=== PATIENT | male | born 1995 | race Caucasian/White ===

== ENCOUNTER 2017-10-13 13:40 | Inpatient (IN) ==
--- NOTE | 2017-10-13 14:17 | Emergency Department Note ---
ED Disposition Clinical Impression: Enteritis, Rectal bleeding Hematemesis Qualifiers: Nausea presence: with nausea Qualified Code(s): K92.0 - Hematemesis Diarrhea Qualifiers: Diarrhea type: unspecified type Qualified Code(s): R19.7 - Diarrhea, unspecified Disposition: Still a Patient Condition on Discharge: Fair Referrals: Steve Armstrong MD [Primary Care Provider] - - Critical Care Critical Care Time: No Attestation: On 10/13/17, the high probability of a clinically significant, sudden or life threatening deterioration of the following system(s) required my full and direct attention, intervention and personal management. The time I documented below is in addition to time spent performing reported procedures but includes the following listed in this critical care notation. Medical Decision Making - Alber Inquiry Pt receiving controlled substance: No Vital Signs: 10/13/17 13:51 Temperature 98.1 F Temperature Source Oral Pulse Rate [Right Brachial] 90 Respiratory Rate 18 Blood Pressure [Right Arm] 129/80 Blood Pressure Mean [Right Arm] 96 Blood Pressure Source [Right Arm] Automatic Cuff Blood Pressure Position [Right Arm] Sitting 02 Sat by Pulse Oximetry 99 Oxygen Delivery Method Room Air - Lab Data Lab Results 10/13/17 14:00: WBC 10.7, RBC 4.28 L, Hgb 13.3 L, Hct 39.3 L, MCV 91.6, MCH 31.1 , MCHC 33.9, RDW 12.7, Plt Count 334, MPV 8.0, Neut % (Auto) 78.5, Lymph % (Auto ) 15.4, Ross % (Auto) 3.7, Eos % (Auto) 1.6, Baso % (Auto) 0.7, Neut # (Auto) 8.4 H, Lymph # (Auto) 1.6, Ross # (Auto) 0.4, Eos # (Auto) 0.2, Baso # (Auto) 0.1 10/13/17 14:00: PT 12.4 H, INR 1.15 H, APTT 27.1 10/13/17 14:00: Sodium 142, Potassium 4.2, Chloride 105, Carbon Dioxide 28, Anion Gap 13.2, BUN 18, Creatinine 0.99, Estimated Creat Clear 99, Estimated GFR 96, Est GFR ( Amer) 117, Glucose 96, Calcium 9.4, Total Bilirubin 0.8 , AST 13 L, ALT 18, Alkaline Phosphatase 80, Troponin I < 0.02, Total Protein 7.2, Albumin 4.3, Globulin 2.9, Albumin/Globulin Ratio 1.5 10/13/17 14:30: Stool Occult Blood Positive A 10/13/17 14:30: Urine Color Yellow, Urine Appearance Clear, Urine pH 7.5, Ur Specific [place] 1.010, Urine Protein Negative, Urine Glucose (UA) Negative, Urine Ketones Trace, Urine Blood Negative, Urine Nitrate Negative, Urine Bilirubin Negative, Urine Urobilinogen 0.2, Ur Leukocyte Esterase Negative, Urine RBC None, Urine WBC None, Ur Squamous Epith Cells Occasional, Urine Bacteria Trace Result diagrams: 10/13/17 14:00 10/13/17 14:00 Orders (Tests/Meds): ED MEDICATIONS Generic Name Dose Route Start Last Admin Trade Name Freq PRN Reason Stop Dose Admin Pantoprazole Sodium 80 mg/ 100 mls @ 10 mls/hr 10/13/17 15:38 Sodium Chloride IV 10/16/17 15:37 .Q10H CODIE Discontinued Medications Generic Name Dose Route Start Last Admin Trade Name Freq PRN Reason Stop Dose Admin Pantoprazole Sodium 80 mg/ 100 mls @ 100 mls/hr 10/13/17 14:38 10/13/17 14:56 Sodium Chloride IV 10/13/17 15:37 100 mls/hr ONCE ONE Administration Iopamidol 75 ml 10/13/17 15:14 10/13/17 15:15 [id number]; 100ml Vial IV 10/13/17 15:15 75 ml ONCE ONE Administration Sodium Chloride 1,000 ml 10/13/17 14:33 Sod Chlor 0.9% 1000ml Bag IV 10/13/17 14:34 BOLUS ONE Sodium Chloride 10 ml 10/13/17 15:14 10/13/17 15:15 Rad-Saline Flush 10ml Syringe IV 10/13/17 15:15 10 ml ONCE ONE Administration ORDERS Category Date Time Status Diarrhea Panel, PCR Stat Lab 10/13/17 14:30 Received - CT Data CT Scan: Abdomen, Pelvis Time Received: 16:[address] Reviewed: Yes: I have viewed the radiologist's interpretation Findings Narrative: Nondistended, fluid-filled loops of small and large bowel which may be seen with enterocolitis. - Physician Consults Physician Consulted: Callie Time: 16:22 Reason -: Admission Comment/Response: I have discussed the case with Dr. Ledesma who agrees to admit the patient to the hospital. We discussed the patient's clinical information, including history, exam, laboratory and radiology results and ED course. Per hospital procedure, I will write temporary bridge inpatient orders on the patient. Specific orders requested by the admitting physician: IV hydration, diarrhea panel (already ordered) General Adult HPI - General Chief complaint: GI Bleed Stated complaint: vomiting blood/passing blood Time Seen by Provider: 10/13/17 14:16 Mode of Arrival: Wheelchair Limitations: No Limitations Description of Symptoms (Recalled from ER Triage Doc. by RN): pt states beginning at 1030 this morning with vomiting, and bloody stools. stated he experienced at least 5 episodes over the course of 2 hours; accompanied with some orthostatic hypotension. vomiting included black/brown emesis and stool was "nothing but blood" - History of Present Illness HPI narrative: Began with diarrhea this morning followed by passing nothing but pure bright red blood per rectum then vomiting followed by vomiting of both dark and bright red blood. Had some abdominal pain which has now resolved unless he moves around. No prior history of gastrointestinal bleed. No alcohol consumption. Takes occasional Excedrin, no heavy NSAID use. - Related Data Allergies Allergy/AdvReac Type Severity Reaction Status Date / Time No Known Allergies Allergy Unverified 05/19/17 15:02 [facility] History I have reviewed the patient's past medical history: Yes - Social History Educational Level: Completed High School Smoking Status: Never smoker Alcohol Intake: never - Psychiatric History Expresses thoughts of harming self/others: None Suicide Plan Description: No Plan ROS Obtained: Yes All systems reviewed & no additional complaints - Constitutional Constitutional: Denies fever(s) - Gastrointestinal Gastrointestingal: Reports: abdominal pain, diarrhea, vomiting blood, bright red blood in stools, vomiting Physical Exam - General General appearance: alert, in no apparent distress - Head Head exam: atraumatic, normocephalic, normal inspection - Eye Eye exam: Present: normal appearance, PERRL, EOMI - ENT ENT exam: Present: normal exam, normal oropharynx, mucous membranes moist, TM's normal bilaterally, normal external ear exam - Neck Neck exam: Present: normal inspection, full ROM, trachea midline. Absent: meningismus, lymphadenopathy - Chest Chest inspection: Present: normal inspection, symmetric chest wall rise. Absent : tenderness - Respiratory Respiratory exam: Present: normal lung sounds bilaterally. Absent: respiratory distress - Cardiovascular Cardiovascular exam: Present: regular rate, normal rhythm. Absent: JVD - Abdominal Exam Abdominal exam: Present: soft, normal bowel sounds. Absent: distention, tenderness, guarding - Extremities Exam Extremities exam: Present: normal inspection, full ROM, normal capillary refill. Absent: calf tenderness - Back Exam Back exam: Present: normal inspection. Absent: tenderness - Neurological Exam Neurological exam: Present: alert, oriented X3 - Psychiatric Psychiatric exam: Present: normal affect, normal mood - Skin Skin exam: Present: warm, dry, intact, normal color - Lymphatic Lymphatic Findings: no adenopathy
[2017-10-13 14:34] LABS: Basophils # 0.1 K/mm3 (0-0.2); Basophils % 0.7 % (0.1-2.0); Eosinophils # 0.2 K/mm3 (0.0-0.4); Eosinophils % 1.6 % (0.1-12.0); Hematocrit 39.3 % (42.0-52.0); Hemoglobin 13.3 g/dL (14.1-18.0); Lymphocytes # 1.6 K/mm3 (0.7-4.5); Lymphocytes % 15.4 K/mm3 (10-50); Mean Corpuscular HGB Conc 33.9 g/dL (31.8-35.4); Mean Corpuscular Hemoglobin 31.1 pg (27.0-31.2); Mean Corpuscular Volume 91.6 fl (80-94); Monocytes # 0.4 K/mm3 (0.1-1.0); Monocytes % 3.7 % (1.7-9.3); Neutrophils # 8.4 K/mm3 (1.8-7.8); Neutrophils % 78.5 % (37.0-80.0); Platelet Count 334 K/mm3 (142-424); Red Blood Count 4.28 M/mm3 (4.60-6.20); Red Cell Distribution Width 12.7 % (11.5-17.5); White Blood Count 10.7 K/mm3 (4.5-13.0)
[2017-10-13 14:39] LABS: Activated Partial Thrombo Time 27.1 seconds (23.6-34.0); INR 1.15 (0.9-1.1); Prothrombin Time 12.4 seconds (9.4-11.8)
[2017-10-13 14:40] LABS: Microscopic, Urine URINE MICROSCOPIC (MICROSCOPIC)
[2017-10-13 14:43] LABS: Appearance,Urine CLEAR (Clear); Bilirubin,Urine Negative (Negative); Blood, Urine Negative (Negative); Color,Urine YELLOW (Yellow); Glucose,Urine (UA) Negative (Negative); Ketones,Urine TRACE (Negative); Leukocyte Esterase,Urine Negative (Negative); PH,Urine 7.5 (5.0-8.5); Protein,Urine Negative (Negative); Urobilinogen,Urine 0.2 EU/dl (0.2)
[2017-10-13 14:51] LABS: Bacteria,Urine Trace /lpf; Squamous Epithelial Cell,Urine Occasional #/hpf (0-5)
[2017-10-13 14:59] LABS: Alanine Aminotransferase 18 U/L (12-78); Albumin Level 4.3 gm/dL (3.4-5.0); Albumin/Globulin Ratio 1.5 (1.1-1.8); Alkaline Phosphatase 80 U/L (46-116); Anion Gap 13.2 mEq/L (5-15); Aspartate Amino Transferase 13 U/L (15-37); Bilirubin,Total 0.8 mg/dL (0.2-1.0); Blood Urea Nitrogen 18 mg/dL (7-18); Calcium 9.4 mg/dL (8.5-10.1); Carbon Dioxide 28 mmol/L (21.0-32.0); Chloride 105 mmol/L (98-107); Globulin 2.9 gm/dl (1.3-3.2); Glucose 96 mg/dL (74-106); Potassium 4.2 mmoL/L (3.5-5.1); Sodium 142 mmol/L (136-145); Total Protein,Serum 7.2 gm/dL (6.4-8.2)
--- NOTE | 2017-10-14 06:37 | History & Physical Report ---
*Admission Date: 10/14/17 *Chief complaint: Hematemesis with bloody stools *History of present illness: 22-year-old male presented to the emergency department yesterday afternoon after illness had developed early in the morning with multiple bouts of vomiting with some hematemesis as well as at least 2 bowel movements that were "pure blood". Patient reports feeling well when he awoke yesterday morning and preparing to go to work. Around 8 AM he felt nauseous and that was his first episodes of vomiting. He actually continue to try to work but noticed lightheadedness and weakness. He ultimately returned home to rest. He called my office for an appointment and upon presentation once he presented all his symptoms he was told to come to the emergency department. In the emergency department patient was evaluated. Hemoglobin was 13. By the time he had come to the emergency department he had had 4-5 more episodes of hematemesis with description of both dark and bright red blood. Patient also had additional bowel movements described as pure blood. Patient was admitted around 6 PM and has not had a bowel movement since. He does report an episode of vomiting this morning. He has had a single sick contact at work. Fellow coworker had vomiting and diarrhea Thursday of this week. He denies fevers or chills. He denies shortness of breath. Other medical history is significant for migraine headaches. Patient also reports he has been taking Jesica because of seasonal allergies. [facility] History I have reviewed the patient's past medical history: Yes Medical History: Denies:: Cancer, Diabetes Mellitus Type 1, Diabetes Mellitus Type 2, MRSA Comment: Migraine headaches Amputation: No Fractures: No - *Social History Educational Level: Completed High School Smoking Status: Never smoker Alcohol Intake: never Occupational Status: employed Housing: house Household Members: family - Psychiatric History Expresses thoughts of harming self/others: None Suicide Plan Description: No Plan *Family Hx:: Diabetes, Hyperlipidemia, Hypertension Review of Systems - Review of Systems Review of systems:: pertinent systems reviewed and negative unless documented below Meds Home Medications Medication Instructions Recorded Confirmed Type No Known Home Medications 10/13/17 10/13/17 History Allergies Allergy/AdvReac Type Severity Reaction Status Date / Time No Known Allergies Allergy Unverified 05/19/17 15:02 Exam Vital signs and Labs for Last 24 Hours: Temp Pulse Resp BP Pulse Ox 98.6 F 68 12 119/61 99 10/14/17 04:00 10/14/17 04:00 10/14/17 04:00 10/14/17 04:00 10/14/17 04:00 Laboratory Results - last 24 hr 10/13/17 14:00: WBC 10.7, RBC 4.28 L, Hgb 13.3 L, Hct 39.3 L, MCV 91.6, MCH 31.1 , MCHC 33.9, RDW 12.7, Plt Count 334, MPV 8.0, Neut % (Auto) 78.5, Lymph % (Auto ) 15.4, Green % (Auto) 3.7, Eos % (Auto) 1.6, Baso % (Auto) 0.7, Neut # (Auto) 8.4 H, Lymph # (Auto) 1.6, Green # (Auto) 0.4, Eos # (Auto) 0.2, Baso # (Auto) 0.1 10/13/17 14:00: PT 12.4 H, INR 1.15 H, APTT 27.1 10/13/17 14:00: Sodium 142, Potassium 4.2, Chloride 105, Carbon Dioxide 28, Anion Gap 13.2, BUN 18, Creatinine 0.99, Estimated Creat Clear 99, Estimated GFR 96, Est GFR ( Amer) 117, Glucose 96, Calcium 9.4, Total Bilirubin 0.8 , AST 13 L, ALT 18, Alkaline Phosphatase 80, Troponin I < 0.02, Total Protein 7.2, Albumin 4.3, Globulin 2.9, Albumin/Globulin Ratio 1.5 10/13/17 14:30: Stool Occult Blood Positive A 10/13/17 14:30: Stl Aeromonas (PCR) Not detected, Stl C. cayetanensis PCR Not detected, Stool Rotavirus (PCR) Not detected, Stl Adenov F 40/41 PCR Not detected, Stool Astrovirus (PCR) Not detected, Stool Campylobacter PCR Not detected, Stl C.difficile Tox PCR Detected A, Stool Cryptosporidium PCR Not detected, Stl E.coli Shiga Tox PCR Not detected, Stool E coli O157 PCR Not detected, Stl Enterotoxigenic E PCR Not detected, Stool EPEC (PCR) Not detected , Stool EAEC (PCR) Not detected, Stl E. histolytica PCR Not detected, Stool Giardia Lamblia PCR Not detected, Stool Salmonella PCR Not detected, Stool Sapovirus (PCR) Not detected, Stl P. shigelloides PCR Not detected, Stl Shigella /EIEC PCR Not detected, St Y.enterocolitica PCR Not detected, Stool Vibrio (PCR ) Not detected, Stl Vibrio cholerae PCR Not detected, Stl Norovirus GI/GII PCR Not detected 10/13/17 14:30: Urine Color Yellow, Urine Appearance Clear, Urine pH 7.5, Ur Specific [place] 1.010, Urine Protein Negative, Urine Glucose (UA) Negative, Urine Ketones Trace, Urine Blood Negative, Urine Nitrate Negative, Urine Bilirubin Negative, Urine Urobilinogen 0.2, Ur Leukocyte Esterase Negative, Urine RBC None, Urine WBC None, Ur Squamous Epith Cells Occasional, Urine Bacteria Trace I & O for Last 24 hours: Intake & Output 10/11/17 10/12/17 10/13/17 10/14/17 11:59 11:59 11:59 11:59 Intake Total 1409 / 1409 Balance 1409 / 1409 Weight 125 lb 8 oz Narrative: Patient does not appear ill. Oropharynx is moist. Neck is without lymphadenopathy. Lungs are clear to auscultation. Heart has a regular rate and rhythm. Abdomen is thin, soft, nontender, nondistended with active bowel sounds. Patient has active range of motion all extremities. Patient can ambulate without difficulty H&P: Result - Labs Labs: Short CBC 10/13/17 Range/Units 14:00 WBC 10.7 (4.5-13.0) K/mm3 Hgb 13.3 L (14.1-18.0) g/dL Hct 39.3 L (42.0-52.0) % Plt Count 334 (142-424) K/mm3 BMP 10/13/17 14:00 Sodium 142 Potassium 4.2 Chloride 105 Carbon Dioxide 28 BUN 18 Creatinine 0.99 Glucose 96 Calcium 9.4 Cardiac Enzymes 10/13/17 Range/Units 14:00 Troponin I < 0.02 (0.00-0.06) ng/ml Liver Function 10/13/17 Range/Units 14:00 Total Bilirubin 0.8 (0.2-1.0) mg/dL AST 13 L (15-37) U/L ALT 18 (12-78) U/L Alkaline Phosphatase 80 (46-116) U/L Albumin 4.3 (3.4-5.0) gm/dL Urine 10/13/17 Range/Units 14:30 Urine Color Yellow (Yellow) Urine Appearance Clear (Clear) Urine pH 7.5 (5.0-8.5) Ur Specific [place] 1.010 (1.005-1.030) Urine Protein Negative (Negative) Urine Glucose (UA) Negative (Negative) Assessment and Plan (1) Clostridium difficile enterocolitis Current visit: Yes Status: Acute Category: Medical Code(s): A04.72 - Enterocolitis due to Clostridium difficile, not specified as recurrent (2) Hematemesis Current visit: Yes Status: Acute Qualifiers: Nausea presence: with nausea Qualified Code(s): K92.0 - Hematemesis Category: Medical Code(s): K92.0 - Hematemesis - Assessment and plan all Dx Assessment and Plan for all problems:: 1. IV Flagyl to treat C. difficile 2. Await H&H this morning. If he has had a significant drop in his hemoglobin the surgical service will be consulted for EGD 3. Continue Protonix drip.
--- NOTE | 2017-10-14 07:26 | Pharmacy Consult Notes ---
[facility] Pharmacy VTE Monitoring - Patient Demographics Admission date: 10/13/17 Report Date: 10/14/17 Time: 07:26 Allergies/Adverse Reactions: Patient Allergies No Known Allergies Allergy (Unverified 05/19/17 15:02) Height: 1.85 m Weight: 56.926 kg Patient Problems: Current Active Problems Enteritis (Acute) Rectal bleeding (Acute) Hematemesis (Acute) Diarrhea (Acute) Clostridium difficile enterocolitis (Acute) - VTE Risk Labs: VTE Related Lab Results Hgb 13.3 g/dL (14.1-18.0) L 10/13/17 14:00 Hct 39.3 % (42.0-52.0) L 10/13/17 14:00 Plt Count 334 K/mm3 (142-424) 10/13/17 14:00 PT 12.4 seconds (9.4-11.8) H 10/13/17 14:00 INR 1.15 (0.9-1.1) H 10/13/17 14:00 APTT 27.1 seconds (23.6-34.0) 10/13/17 14:00 BUN 18 mg/dL (7-18) 10/13/17 14:00 Creatinine 0.99 mg/dL (0.70-1.30) 10/13/17 14:00 Estimated Creat Clear 99 mL/min (0-300) 10/13/17 14:00 VTE Score: 0 - Prophylaxis VTE Prophylaxis Ordered?: Yes Types of VTE Prophylaxis: TEDS Knee High Location of Applied Device: Bilateral Lower Extremeties - VTE Diagnosis Confirmed Treatment or plan recommended: Continue Current Treatment
[2017-10-14 07:27] LABS: Basophils % 0.6 % (0.1-2.0); Eosinophils # 0.1 K/mm3 (0.0-0.4); Eosinophils % 1.8 % (0.1-12.0); Hematocrit 28.5 % (42.0-52.0); Lymphocytes # 1.1 K/mm3 (0.7-4.5); Lymphocytes % 15.5 K/mm3 (10-50); Mean Corpuscular HGB Conc 36.2 g/dL (31.8-35.4); Mean Corpuscular Hemoglobin 33.1 pg (27.0-31.2); Mean Corpuscular Volume 91.4 fl (80-94); Mean Platelet Volume 8.4 fl (7.4-10.4); Monocytes # 0.3 K/mm3 (0.1-1.0); Monocytes % 4.5 % (1.7-9.3); Neutrophils # 5.7 K/mm3 (1.8-7.8); Neutrophils % 77.6 % (37.0-80.0); Platelet Count 258 K/mm3 (142-424); Red Blood Count 3.11 M/mm3 (4.60-6.20); Red Cell Distribution Width 12.6 % (11.5-17.5); White Blood Count 7.4 K/mm3 (4.5-13.0)
[2017-10-14 07:34] LABS: Anion Gap 9.9 mEq/L (5-15); Potassium 3.9 mmoL/L (3.5-5.1)
[2017-10-14 07:52] LABS: Hemoglobin 10.2 g/dL (14.1-18.0)
--- NOTE | 2017-10-14 08:52 | Progress Note ---
[facility] Anesthesia Checklist - Patient Identification Patient Identification: Arm Band, Family, Verbal (Name & ) - Structural Data Admitted From: Inpatient Planned Operative Procedure/s: egd Consent for Planned Operative Procedure(s) Verified: Yes Verified Documents: Surgical Consent, History and Physical - NPO Status Verified Time NPO: 09:30 - Chart Verification Results Verified: CBC, BMP - Additional verifications Patient : No Anesthesia Reactions: No Hx Blood Transfusions: No Blood Transfusion Reaction: No Cephalosporin Allergy: No Previous Colonoscopy: No - Cardiovascular Assessment Heart Sounds: S1 & S2 Pulse Strength: Baseline Pulse Rhythm: Regular - Airway Assessment C-Spine Mobility Assessed: Yes TMJ Mobility Assessed: Yes Dentition: Good Dentition - Neurological Assessment Level of Consciousness: Awake, Alert, Appropriate Hx Seizures: No Numbness or tingling in extremities: No - Anesthesia Plan Anesthesia Risk discussed: Yes Anesthesia Plan: Verified ASA Class: II Anesthesia Type: MAC [facility] Anesthesia HX I have reviewed the patient's past medical history: Yes Medical History: Reports:: Migraine Denies:: Cancer, Diabetes Mellitus Type 1, Diabetes Mellitus Type 2, MRSA Laterality Cases: Bilateral: Myringotomy (Ear Tubes) Amputation: No Fractures: No *Family Hx:: Diabetes, Hyperlipidemia, Hypertension
--- NOTE | 2017-10-14 09:01 | Consult Report ---
*Admission Date: 10/13/17 *Chief complaint: Possible upper gastrointestinal hemorrhage *History of present illness: This is a 22-year-old gentleman seen in consultation from Dr. Ibrahim for esophagogastroduodenoscopy for possible upper gastrointestinal hemorrhage. Please see below for his admission HPI: 22-year-old male presented to the emergency department yesterday afternoon after illness had developed early in the morning with multiple bouts of vomiting with some hematemesis as well as at least 2 bowel movements that were "pure blood". Patient reports feeling well when he awoke yesterday morning and preparing to go to work. Around 8 AM he felt nauseous and that was his first episodes of vomiting. He actually continue to try to work but noticed lightheadedness and weakness. He ultimately returned home to rest. He called my office for an appointment and upon presentation once he presented all his symptoms he was told to come to the emergency department. In the emergency department patient was evaluated. Hemoglobin was 13. By the time he had come to the emergency department he had had 4-5 more episodes of hematemesis with description of both dark and bright red blood. Patient also had additional bowel movements described as pure blood. Patient was admitted around 6 PM and has not had a bowel movement since. He does report an episode of vomiting this morning. He has had a single sick contact at work. Fellow coworker had vomiting and diarrhea Thursday of this week. He denies fevers or chills. He denies shortness of breath. Other medical history is significant for migraine headaches. Patient also reports he has been taking Jesica because of seasonal allergies. Review of Systems - Constitutional Denies chills - Eyes Denies change in vision - ENT Denies bleeding gums - *Respiratory Denies cough - *Gastrointestinal Reports vomiting blood - Hematologic/Lymphatic Denies easy bleeding [facility] History Medical History: Reports:: Migraine Denies:: Cancer, Diabetes Mellitus Type 1, Diabetes Mellitus Type 2, MRSA, Seizures Other Medical History: Denies: Blood Transfusion Reaction Laterality Cases: Bilateral: Myringotomy (Ear Tubes) Amputation: No Fractures: No - *Social History Educational Level: Completed High School Smoking Status: Never smoker Alcohol Intake: never Occupational Status: employed Housing: house Household Members: family - Psychiatric History Expresses thoughts of harming self/others: None Suicide Plan Description: No Plan *Family Hx:: Diabetes, Hyperlipidemia, Hypertension Meds Home Medications Medication Instructions Recorded Confirmed Type No Known Home Medications 10/13/17 10/13/17 History Allergies Allergy/AdvReac Type Severity Reaction Status Date / Time No Known Allergies Allergy Unverified 05/19/17 15:02 Exam Vital signs and Labs for Last 24 Hours: Temp Pulse Resp BP Pulse Ox 98.7 F 66 18 103/45 98 10/14/17 07:38 10/14/17 07:38 10/14/17 07:38 10/14/17 07:38 10/14/17 07:38 Laboratory Results - last 24 hr 10/13/17 14:00: WBC 10.7, RBC 4.28 L, Hgb 13.3 L, Hct 39.3 L, MCV 91.6, MCH 31.1 , MCHC 33.9, RDW 12.7, Plt Count 334, MPV 8.0, Neut % (Auto) 78.5, Lymph % (Auto ) 15.4, [place] % (Auto) 3.7, Eos % (Auto) 1.6, Baso % (Auto) 0.7, Neut # (Auto) 8.4 H, Lymph # (Auto) 1.6, [place] # (Auto) 0.4, Eos # (Auto) 0.2, Baso # (Auto) 0.1 10/13/17 14:00: PT 12.4 H, INR 1.15 H, APTT 27.1 10/13/17 14:00: Sodium 142, Potassium 4.2, Chloride 105, Carbon Dioxide 28, Anion Gap 13.2, BUN 18, Creatinine 0.99, Estimated Creat Clear 99, Estimated GFR 96, Est GFR ( Amer) 117, Glucose 96, Calcium 9.4, Total Bilirubin 0.8 , AST 13 L, ALT 18, Alkaline Phosphatase 80, Troponin I < 0.02, Total Protein 7.2, Albumin 4.3, Globulin 2.9, Albumin/Globulin Ratio 1.5 10/13/17 14:30: Stool Occult Blood Positive A 10/13/17 14:30: Stl Aeromonas (PCR) Not detected, Stl C. cayetanensis PCR Not detected, Stool Rotavirus (PCR) Not detected, Stl Adenov F 40/41 PCR Not detected, Stool Astrovirus (PCR) Not detected, Stool Campylobacter PCR Not detected, Stl C.difficile Tox PCR Detected A, Stool Cryptosporidium PCR Not detected, Stl E.coli Shiga Tox PCR Not detected, Stool E coli O157 PCR Not detected, Stl Enterotoxigenic E PCR Not detected, Stool EPEC (PCR) Not detected , Stool EAEC (PCR) Not detected, Stl E. histolytica PCR Not detected, Stool Giardia Lamblia PCR Not detected, Stool Salmonella PCR Not detected, Stool Sapovirus (PCR) Not detected, Stl P. shigelloides PCR Not detected, Stl Shigella /EIEC PCR Not detected, St Y.enterocolitica PCR Not detected, Stool Vibrio (PCR ) Not detected, Stl Vibrio cholerae PCR Not detected, Stl Norovirus GI/GII PCR Not detected 10/13/17 14:30: Urine Color Yellow, Urine Appearance Clear, Urine pH 7.5, Ur Specific [place] 1.010, Urine Protein Negative, Urine Glucose (UA) Negative, Urine Ketones Trace, Urine Blood Negative, Urine Nitrate Negative, Urine Bilirubin Negative, Urine Urobilinogen 0.2, Ur Leukocyte Esterase Negative, Urine RBC None, Urine WBC None, Ur Squamous Epith Cells Occasional, Urine Bacteria Trace 10/14/17 06:58: WBC 7.4 D, RBC 3.11 L D, Hgb 10.2 L D, Hct 28.5 L, MCV 91.4, MCH 33.1 H, MCHC 36.2 H, RDW 12.6, Plt Count 258, MPV 8.4, Neut % (Auto) 77.6, Lymph % (Auto) 15.5, [place] % (Auto) 4.5, Eos % (Auto) 1.8, Baso % (Auto) 0.6, Neut # (Auto) 5.7, Lymph # (Auto) 1.1, [place] # (Auto) 0.3, Eos # (Auto) 0.1, Baso # (Auto) 0.0 10/14/17 06:58: Sodium 141, Potassium 3.9, Chloride 109 H, Carbon Dioxide 26, Anion Gap 9.9, BUN 30 H D, Creatinine 0.89, Estimated Creat Clear 107, Estimated GFR 109, Est GFR ( Amer) 132, Glucose 95 I & O for Last 24 hours: Intake & Output 05/13/18 05/14/18 05/15/18 05/16/18 11:59 11:59 11:59 11:59 Intake Total 1409 / 1409 Balance 1409 / 1409 Weight 125 lb 8 oz - Constitutional no acute distress - *Routine Respiratory Exam Absent: respiratory distress - *Routine Cardiovascular Exam Present: RRR - *Routine Abdominal Exam Present: soft Results - Labs 10/14/17 06:58 10/14/17 06:58 Laboratory Results - last 24 hr 10/13/17 14:00: WBC 10.7, RBC 4.28 L, Hgb 13.3 L, Hct 39.3 L, MCV 91.6, MCH 31.1 , MCHC 33.9, RDW 12.7, Plt Count 334, MPV 8.0, Neut % (Auto) 78.5, Lymph % (Auto ) 15.4, [place] % (Auto) 3.7, Eos % (Auto) 1.6, Baso % (Auto) 0.7, Neut # (Auto) 8.4 H, Lymph # (Auto) 1.6, [place] # (Auto) 0.4, Eos # (Auto) 0.2, Baso # (Auto) 0.1 10/13/17 14:00: PT 12.4 H, INR 1.15 H, APTT 27.1 10/13/17 14:00: Sodium 142, Potassium 4.2, Chloride 105, Carbon Dioxide 28, Anion Gap 13.2, BUN 18, Creatinine 0.99, Estimated Creat Clear 99, Estimated GFR 96, Est GFR ( Amer) 117, Glucose 96, Calcium 9.4, Total Bilirubin 0.8 , AST 13 L, ALT 18, Alkaline Phosphatase 80, Troponin I < 0.02, Total Protein 7.2, Albumin 4.3, Globulin 2.9, Albumin/Globulin Ratio 1.5 10/13/17 14:30: Stool Occult Blood Positive A 10/13/17 14:30: Stl Aeromonas (PCR) Not detected, Stl C. cayetanensis PCR Not detected, Stool Rotavirus (PCR) Not detected, Stl Adenov F 40/41 PCR Not detected, Stool Astrovirus (PCR) Not detected, Stool Campylobacter PCR Not detected, Stl C.difficile Tox PCR Detected A, Stool Cryptosporidium PCR Not detected, Stl E.coli Shiga Tox PCR Not detected, Stool E coli O157 PCR Not detected, Stl Enterotoxigenic E PCR Not detected, Stool EPEC (PCR) Not detected , Stool EAEC (PCR) Not detected, Stl E. histolytica PCR Not detected, Stool Giardia Lamblia PCR Not detected, Stool Salmonella PCR Not detected, Stool Sapovirus (PCR) Not detected, Stl P. shigelloides PCR Not detected, Stl Shigella /EIEC PCR Not detected, St Y.enterocolitica PCR Not detected, Stool Vibrio (PCR ) Not detected, Stl Vibrio cholerae PCR Not detected, Stl Norovirus GI/GII PCR Not detected 10/13/17 14:30: Urine Color Yellow, Urine Appearance Clear, Urine pH 7.5, Ur Specific [place] 1.010, Urine Protein Negative, Urine Glucose (UA) Negative, Urine Ketones Trace, Urine Blood Negative, Urine Nitrate Negative, Urine Bilirubin Negative, Urine Urobilinogen 0.2, Ur Leukocyte Esterase Negative, Urine RBC None, Urine WBC None, Ur Squamous Epith Cells Occasional, Urine Bacteria Trace 10/14/17 06:58: WBC 7.4 D, RBC 3.11 L D, Hgb 10.2 L D, Hct 28.5 L, MCV 91.4, MCH 33.1 H, MCHC 36.2 H, RDW 12.6, Plt Count 258, MPV 8.4, Neut % (Auto) 77.6, Lymph % (Auto) 15.5, [place] % (Auto) 4.5, Eos % (Auto) 1.8, Baso % (Auto) 0.6, Neut # (Auto) 5.7, Lymph # (Auto) 1.1, [place] # (Auto) 0.3, Eos # (Auto) 0.1, Baso # (Auto) 0.0 10/14/17 06:58: Sodium 141, Potassium 3.9, Chloride 109 H, Carbon Dioxide 26, Anion Gap 9.9, BUN 30 H D, Creatinine 0.89, Estimated Creat Clear 107, Estimated GFR 109, Est GFR ( Amer) 132, Glucose 95 Assessment and Plan (1) Clostridium difficile enterocolitis Current visit: Yes Status: Acute Category: Medical Code(s): A04.72 - Enterocolitis due to Clostridium difficile, not specified as recurrent (2) Hematemesis Current visit: Yes Status: Acute Qualifiers: Nausea presence: with nausea Qualified Code(s): K92.0 - Hematemesis Category: Medical Code(s): K92.0 - Hematemesis Continue PPI Esophagogastroduodenoscopy-I have discussed the risks and benefits and he agrees to proceed
--- NOTE | 2017-10-14 12:29 | Procedure Note ---
- Procedure: Date: 10/14/17 Procedure Performed:: Esophagogastroduodenoscopy with biopsy and epinephrine injection Indications:: Upper gastrointestinal hemorrhage Performing Provider:: Ramón Vail MD Referring Provider:: Dr. Ibrahim Sedation:: IV sedation with 9 mg of Versed and 150 mcg of fentanyl Procedure:: After informed consent was obtained, the patient was taken to the endoscopy suite. IV sedation ensued after he was transferred to the left lateral decubitus position. The gastroscope was advanced. The neck was entered. Minimal inflammation was noted. The pylorus is into. The duodenal ulcer with "fresh clot" at the base was noted. No ongoing/active bleeding was seen. 16.5 ml epinephrine was injected in multiple quadrants around the ulcer. Appropriate "blush" was noted. Again, no ongoing/active bleeding was noted. As the gastroscope was removed, a biopsy of the antrum was obtained. Findings:: Duodenal ulcer with "fresh clot" at the base, but no active bleeding Specimens:: Antral biopsy Recommendations:: Continue PPI Carafate Serial H/H Complications:: No immediate Estimated blood obtained (mL): 1
[2017-10-14 13:39] LABS: Hematocrit 28.9 % (42.0-52.0); Hemoglobin 9.9 g/dL (14.1-18.0)
[2017-10-14 21:34] LABS: Hematocrit 24.5 % (42.0-52.0)
[2017-10-14 21:48] LABS: Hemoglobin 8.6 g/dL (14.1-18.0)
[2017-10-15 05:40] LABS: Hematocrit 25.7 % (42.0-52.0); Hemoglobin 9.4 g/dL (14.1-18.0)
--- NOTE | 2017-10-15 06:54 | Progress Note ---
Subjective Patient reports: other (resting. some "dark stool" yesterday.) Exam Vital signs and Labs for Last 24 Hours: Temp Pulse Resp BP Pulse Ox 98.3 F 101 H 16 108/57 98 10/15/17 04:00 10/15/17 04:00 10/15/17 04:00 10/15/17 04:00 10/15/17 04:00 Laboratory Results - last 24 hr 10/14/17 06:58: WBC 7.4 D, RBC 3.11 L D, Hgb 10.2 L D, Hct 28.5 L, MCV 91.4, MCH 33.1 H, MCHC 36.2 H, RDW 12.6, Plt Count 258, MPV 8.4, Neut % (Auto) 77.6, Lymph % (Auto) 15.5, [place] % (Auto) 4.5, Eos % (Auto) 1.8, Baso % (Auto) 0.6, Neut # (Auto) 5.7, Lymph # (Auto) 1.1, [place] # (Auto) 0.3, Eos # (Auto) 0.1, Baso # (Auto) 0.0 10/14/17 06:58: Sodium 141, Potassium 3.9, Chloride 109 H, Carbon Dioxide 26, Anion Gap 9.9, BUN 30 H D, Creatinine 0.89, Estimated Creat Clear 107, Estimated GFR 109, Est GFR ( Amer) 132, Glucose 95 10/14/17 13:15: Hgb 9.9 L, Hct 28.9 L 10/14/17 21:05: Hgb 8.6 L D, Hct 24.5 L 10/15/17 05:20: Hgb 9.4 L, Hct 25.7 L I & O for Last 24 hours: Intake & Output 10/12/17 10/13/17 10/14/17 10/15/17 11:59 11:59 11:59 11:59 Intake Total 1609 / 1609 4867 / 4867 Balance 1609 / 1609 4867 / 4867 Weight 125 lb 8 oz 125 lb 8.005 oz - Constitutional no acute distress - *Routine Respiratory Exam Absent: respiratory distress - *Routine Abdominal Exam Present: soft Progress Note: A&P (1) Clostridium difficile enterocolitis Status: Acute Current Visit: Yes (2) Hematemesis Status: Acute Current Visit: Yes (3) Duodenal ulcer Status: Acute Assessment and plan: Continue PPI/Carafate Slowly advance to soft diet HH later today and in AM FU pending path from antral biopsy Current Visit: Yes
--- NOTE | 2017-10-15 07:06 | Progress Note ---
Internal Medicine - PN: Subj *Date: 10/15/17 *Time: 07:04 Interval history: Patient developed a migraine headache last night that required subcutaneous Imitrex which did relieve the headache. Patient believes his headache may have been triggered by lack of food. EGD yesterday by Dr. Coelho showed a duodenal ulcer. Biopsies have been taken. The ulcer base was injected with epinephrine. Patient is passing black stools. He admits he feels weak but denies any shortness of breath or lightheadedness. Exam Vital signs and Labs for Last 24 Hours: Temp Pulse Resp BP Pulse Ox 98.3 F 101 H 16 108/57 98 10/15/17 04:00 10/15/17 04:00 10/15/17 04:00 10/15/17 04:00 10/15/17 04:00 Laboratory Results - last 24 hr 10/14/17 06:58: WBC 7.4 D, RBC 3.11 L D, Hgb 10.2 L D, Hct 28.5 L, MCV 91.4, MCH 33.1 H, MCHC 36.2 H, RDW 12.6, Plt Count 258, MPV 8.4, Neut % (Auto) 77.6, Lymph % (Auto) 15.5, [place] % (Auto) 4.5, Eos % (Auto) 1.8, Baso % (Auto) 0.6, Neut # (Auto) 5.7, Lymph # (Auto) 1.1, [place] # (Auto) 0.3, Eos # (Auto) 0.1, Baso # (Auto) 0.0 10/14/17 06:58: Sodium 141, Potassium 3.9, Chloride 109 H, Carbon Dioxide 26, Anion Gap 9.9, BUN 30 H D, Creatinine 0.89, Estimated Creat Clear 107, Estimated GFR 109, Est GFR ( Amer) 132, Glucose 95 10/14/17 13:15: Hgb 9.9 L, Hct 28.9 L 10/14/17 21:05: Hgb 8.6 L D, Hct 24.5 L 10/15/17 05:20: Hgb 9.4 L, Hct 25.7 L I & O for Last 24 hours: Intake & Output 10/12/17 10/13/17 10/14/17 10/15/17 11:59 11:59 11:59 11:59 Intake Total 1609 / 1609 4867 / 4867 Balance 1609 / 1609 486 / 4867 Weight 125 lb 8 oz 125 lb 8.005 oz Narrative: He looks well. Lungs are clear to auscultation. Heart has a regular rate and rhythm. Abdomen is thin, soft, nontender Assessment and Plan (1) Clostridium difficile enterocolitis Current visit: Yes Status: Acute Category: Medical Code(s): A04.72 - Enterocolitis due to Clostridium difficile, not specified as recurrent (2) Hematemesis Current visit: Yes Status: Acute Qualifiers: Nausea presence: with nausea Qualified Code(s): K92.0 - Hematemesis Category: Medical Code(s): K92.0 - Hematemesis (3) Duodenal ulcer Current visit: Yes Status: Acute Category: Medical Code(s): K26.9 - Duodenal ulcer, unspecified as acute or chronic, without hemorrhage or perforation - Assessment and plan all Dx Assessment and Plan for all problems:: 1. Continue Protonix twice daily and Carafate, await pathology of biopsy 2. Continue IV Flagyl for C. difficile 3. Subcutaneous Imitrex has been ordered as needed for migraine headache 4. Trazodone has been ordered for sleep
[2017-10-15 17:20] LABS: Hematocrit 25.6 % (42.0-52.0); Hemoglobin 8.9 g/dL (14.1-18.0)
[2017-10-16 06:52] LABS: Hematocrit 25.1 % (42.0-52.0); Hemoglobin 8.8 g/dL (14.1-18.0)
--- NOTE | 2017-10-16 07:09 | Progress Note ---
Subjective Patient reports: no new complaints Narrative: No more black stools. She did have some mild nausea. He attributes this to lack of substantial food. Denies abdominal pain. Exam Vital signs and Labs for Last 24 Hours: Temp Pulse Resp BP Pulse Ox 98.4 F 87 18 108/48 98 10/16/17 04:00 10/16/17 04:00 10/16/17 04:00 10/16/17 04:00 10/16/17 04:00 Laboratory Results - last 24 hr 10/15/17 17:05: Hgb 8.9 L, Hct 25.6 L I & O for Last 24 hours: Intake & Output 10/13/17 10/14/17 10/15/17 10/16/17 11:59 11:59 11:59 11:59 Intake Total 1609 / 1609 5307 / 5307 3767 / 3767 Balance 1609 / 1609 5307 / 5307 3767 / 3767 Weight 125 lb 8 oz 125 lb 8.005 oz - *Routine Abdominal Exam Present: soft. Absent: tenderness Progress Note: A&P (1) Clostridium difficile enterocolitis Status: Acute Current Visit: Yes (2) Hematemesis Status: Acute Current Visit: Yes (3) Duodenal ulcer Status: Acute Assessment and plan: Should be okay for discharge home with medical management of her duodenal ulcer. Current Visit: Yes
--- NOTE | 2017-10-16 07:26 | Discharge Summary ---
General - General Admission date:: 10/13/17 Discharge date: 10/16/17 HPI HPI: 22-year-old male presented to the emergency department yesterday afternoon after illness had developed early in the morning with multiple bouts of vomiting with some hematemesis as well as at least 2 bowel movements that were "pure blood". Patient reports feeling well when he awoke yesterday morning and preparing to go to work. Around 8 AM he felt nauseous and that was his first episodes of vomiting. He actually continue to try to work but noticed lightheadedness and weakness. He ultimately returned home to rest. He called my office for an appointment and upon presentation once he presented all his symptoms he was told to come to the emergency department. In the emergency department patient was evaluated. Hemoglobin was 13. By the time he had come to the emergency department he had had 4-5 more episodes of hematemesis with description of both dark and bright red blood. Patient also had additional bowel movements described as pure blood. Patient was admitted around 6 PM and has not had a bowel movement since. He does report an episode of vomiting this morning. He has had a single sick contact at work. Fellow coworker had vomiting and diarrhea Thursday of this week. He denies fevers or chills. He denies shortness of breath. Other medical history is significant for migraine headaches. Patient also reports he has been taking Jesica because of seasonal allergies. Hospital Course Hospital Course: Patient was admitted for observation and serial H&H's. The morning following admission his hemoglobin had dropped significantly. Dr. Coelho was consulted for EGD. Patient underwent EGD on October 14. EGD revealed a duodenal ulcer that had fresh clot but was not actively bleeding. The ulcer was biopsied and injected with epinephrine. Post procedurally the patient was started on clear liquids which was later advanced to full liquids. Patient did tolerate liquids. He continued to pass some black stools but these decreased in frequency. He was continued on IV Flagyl to treat C. difficile while hospitalized. Patient's hemoglobins were followed every 6 hours and then every 12 hours during hospitalization. Hemoglobin decreased to a low of 8.6 on the evening of the . At discharge hemoglobin was 8.8. Patient continued to have some lightheadedness and lack of energy from his blood loss. On the patient was discharged home. While hospitalized he also had several migraine aches which the patient has a history of. These responded minimally to his Imitrex. He will follow-up in my office on Thursday. Objective Vital signs: Temp Pulse Resp BP Pulse Ox 98.4 F 87 18 108/48 98 10/16/17 04:00 10/16/17 04:00 10/16/17 04:00 10/16/17 04:00 10/16/17 04:00 Results Labs on day of discharge: Labs from last 24 hours 10/16/17 10/15/17 06:15 17:05 Hgb 8.8 L 8.9 L Hct 25.1 L 25.6 L DS: Diagnosis - Discharge Diagnosis (1) Duodenal ulcer Status: Acute (2) Clostridium difficile enterocolitis Status: Acute (3) Hematemesis Status: Acute Discharge Plan - Patient Discharge Instructions ACTIVITY: Continue current activity DIET: continue same diet Patient Instructions: Diarrhea, Antibiotic-associated Colitis -- C difficile, DI for Rectal Bleeding - Follow up Plan Follow up with: Ramón Vail MD [Staff Physician] - 1 week Yogesh Ibrahim MD [Family Provider] - 10/19/17 Disposition: Home, Self-Shelter Medications: Home Medications Medication Instructions Recorded Confirmed Type SUMAtriptan succinate [Imitrex 100 mg PO BID 10/15/17 10/15/17 History 25mg Tablet] Prescriptions/Medication Reconciliation: New metroNIDAZOLE [metroNIDAZOLE 500mg Tablet] 500 mg PO Q8 #30 tab Pantoprazole Sodium [Protonix 40mg tablet] 40 mg PO BID 30 Days #60 tab Sucralfate [Carafate 1gm Tab] 1 gm PO ACHS #120 tab Amitriptyline HCl [Elavil 25mg tablet] 0 mg PO QIDRT #30 tab Continue SUMAtriptan succinate [Imitrex 25mg Tablet] 100 mg PO BID
[2017-10-16 07:45] VITALS: BP 110/88
== END 2017-10-16 08:25 | disposition home or self-care (01) ==
LOC: 2ND 13:40 → ER 13:40 → OBSVTOIN 18:28 → 2ND 18:29
PROVIDERS: ADMIT Emergency Medicine; ATTEND Family Medicine
CPT/HCPCS: 36415; 74177; 80048; 80053; 81001; 82272; 84484; 85014; 85018; 85025; 85610; 85730; 87507; 94761; 96374; 99152; 99153; 99283; G0328; J2405; Q9967

== ENCOUNTER 2019-04-02 05:28 | Observation (INO) ==
[2019-04-02 06:07] LABS: Basophils # 0.1 K/mm3 (0-0.2); Basophils % 0.5 % (0.1-2.0); Eosinophils # 0.2 K/mm3 (0.0-0.4); Eosinophils % 1.9 % (0.1-12.0); Hematocrit 43.1 % (42.0-52.0); Hemoglobin 14.5 g/dL (14.1-18.0); Lymphocytes # 1.6 K/mm3 (0.7-4.5); Lymphocytes % 15.2 % (10-50); Mean Corpuscular HGB Conc 33.7 g/dL (31.8-35.4); Mean Corpuscular Volume 93.1 fl (80-94); Monocytes # 0.4 K/mm3 (0.1-1.0); Monocytes % 3.7 % (1.7-9.3); Neutrophils # 8.2 K/mm3 (1.8-7.8); Neutrophils % 78.7 % (37.0-80.0); Platelet Count 323 K/mm3 (142-424); Red Blood Count 4.63 M/mm3 (4.60-6.20); Red Cell Distribution Width 12.6 % (11.5-17.5); White Blood Count 10.4 K/mm3 (4.8-10.8)
[2019-04-02 06:14] LABS: Microscopic, Urine URINE MICROSCOPIC (MICROSCOPIC)
[2019-04-02 06:19] LABS: Blood, Urine Negative (Negative); Glucose,Urine (UA) Negative (Negative); Ketones,Urine Negative (Negative); Leukocyte Esterase,Urine Negative (Negative); Protein,Urine Negative (Negative); Specific Gravity, Urine >= 1.030 (1.005-1.030)
[2019-04-02 06:19] LABS: Alanine Aminotransferase 9 U/L (12-78); Albumin/Globulin Ratio 1.3 (1.1-1.8); Alkaline Phosphatase 67 U/L (46-116); Amylase 63 U/L (25-115); Anion Gap 10.8 mEq/L (5-15); Aspartate Amino Transferase 6 U/L (15-37); Blood Urea Nitrogen 13 mg/dL (7-18); Calcium 9.2 mg/dL (8.5-10.1); Carbon Dioxide 28 mmol/L (21.0-32.0); Chloride 103 mmol/L (98-107); Globulin 3.1 gm/dl (1.3-3.2); Glucose 91 mg/dL (74-106); Sodium 138 mmol/L (136-145); Total Protein,Serum 7.1 gm/dL (6.4-8.2)
[2019-04-02 06:24] LABS: C-Reactive Protein < 0.2 mg/dL (0.0-0.9)
[2019-04-02 06:29] LABS: Appearance,Urine Turbid (Clear); Bilirubin,Urine Negative (Negative); Color,Urine Orange (Yellow)
[2019-04-02 06:31] LABS: Amorphous Sediment,Urine 2+ /lpf; Bacteria,Urine 3+ /lpf
--- NOTE | 2019-04-02 06:43 | Emergency Department Note ---
ED Disposition Clinical Impression: UGIB (upper gastrointestinal bleed) Disposition: Admitted as Observation Condition on Discharge: Good Referrals: Yogesh Ibrahim MD [Primary Care Provider] - - Critical Care Critical Care Time: No Attestation: On 04/02/19, the high probability of a clinically significant, sudden or life threatening deterioration of the following system(s) required my full and direct attention, intervention and personal management. The time I documented below is in addition to time spent performing reported procedures but includes the following listed in this critical care notation. Medical Decision Making - Medical Records Medical records reviewed: Yes: I reviewed the patient's medical records. - Alber Inquiry Pt receiving controlled substance: No Vital Signs: 04/02/19 05:48 Temperature 98.4 F Temperature Source Oral Pulse Rate [Right] 66 Respiratory Rate 16 Blood Pressure [Right Arm] 121/72 Blood Pressure Mean [Right Arm] 88 Blood Pressure Source [Right Arm] Automatic Cuff Blood Pressure Position [Right Arm] Supine 02 Sat by Pulse Oximetry 100 Oxygen Delivery Method Room Air - Lab Data Lab results reviewed: Yes: I reviewed the patient's lab results. Lab Results 04/02/19 05:30: Urine Color [place], Urine Appearance Turbid, Urine pH 6.0, Ur Specific [place] >= 1.030, Urine Protein Negative, Urine Glucose (UA) Negative, Urine Ketones Negative, Urine Blood Negative, Urine Nitrate Negative, Urine Bilirubin Negative, Urine Urobilinogen 1.0, Ur Leukocyte Esterase Negative, Amorphous Sediment 2+, Urine Bacteria 3+ 04/02/19 05:45: ESR 4 04/02/19 05:45: Sodium 138, Potassium 3.8, Chloride 103, Carbon Dioxide 28, Anion Gap 10.8, BUN 13, Creatinine 1.11, Estimated Creat Clear 95, Estimated GFR 84, Est GFR ( Amer) 101, Glucose 91, Calcium 9.2, Total Bilirubin 1.0, T 6 L, ALT 9 L, Alkaline Phosphatase 67, C-Reactive Protein < 0.2, Total Protein 7.1, Albumin 4.0, Globulin 3.1, Albumin/Globulin Ratio 1.3, Amylase 63 04/02/19 05:45: WBC 10.4, RBC 4.63, Hgb 14.5, Hct 43.1, MCV 93.1, MCH 31.4 H, MCHC 33.7, RDW 12.6, Plt Count 323, MPV 8.0, Neut % (Auto) 78.7, Lymph % (Auto) 15.2, [place] % (Auto) 3.7, Eos % (Auto) 1.9, Baso % (Auto) 0.5, Neut # (Auto) 8.2 H, Lymph # (Auto) 1.6, [place] # (Auto) 0.4, Eos # (Auto) 0.2, Baso # (Auto) 0.1 04/02/19 05:45: Lipase 127 04/02/19 06:10: Stool Occult Blood Positive A Result diagrams: 04/02/19 05:45 04/02/19 05:45 Orders (Tests/Meds): ED MEDICATIONS Generic Name Dose Route Start Last Admin Trade Name Freq PRN Reason Stop Dose Admin Sodium Chloride 1,000 mls @ 999 mls/hr 04/02/19 06:15 04/02/19 06:18 Sod Chlor 0.9% 1000ml Bag IV 04/02/19 07:15 999 mls/hr .[id number] CODIE Administration Discontinued Medications Generic Name Dose Route Start Last Admin Trade Name Freq PRN Reason Stop Dose Admin Pantoprazole Sodium 80 mg 04/02/19 06:02 04/02/19 06:18 Protonix 40mg Vial IV 04/02/19 06:03 80 mg ONCE ONE Administration ORDERS Category Date Time Status CT abdomen pelvis w con Stat Cat Scan 04/02/19 05:57 Stop Req Urine Culture Stat Micro 04/02/19 05:30 Received Nausea/Vomiting/Diarrhea HPI - General Chief complaint: Nausea/Vomiting/Diarrhea Stated complaint: Bleeding Ulcer Time Seen by Provider: 04/02/19 06:15 Mode of Arrival: Ambulatory Source of Information: Patient, Relative, Medical Record Limitations: No Limitations Description of Symptoms (Recalled from ER Triage Doc. by RN): Pt states he has vomitted dark and bright red blood about 6 times last night, has had ulcers in the past with same symptoms - History of Present Illness HPI Narrative: pt with vomiting blood and now dark stool which started recently and has hx of bleeding ulcer and has no abd pain MD complaint: nausea, vomiting Onset (ago): hour(s) Associated Abdominal Pain: No Severity: moderate Associated symptoms: denies other symptoms - Related Data Home Medications Medication Instructions Recorded Confirmed No Known Home Medications 04/02/19 04/02/19 Allergies Allergy/AdvReac Type Severity Reaction Status Date / Time No Known Allergies Allergy Verified 01/14/19 21:54 [facility] History - Hepatitis A Screen Drug use history?: No High risk sexual behaviors?: No History of sexually transmitted infection?: No Currently employed?: No Childcare worker?: No Do you have indoor plumbing?: Yes Do you have electricity?: Yes Attestation statement:: This patient has been screened for Hepatitis A risk factors. I have reviewed the patient's past medical history: Yes Medical History: Reports:: Migraine Denies:: Cancer, Diabetes Mellitus Type 1, Diabetes Mellitus Type 2, Internal Pacemaker, Lung Disease, MRSA, Seizures Other Medical History: Denies: Blood Transfusion Reaction Comment: Migraine headaches Laterality Cases: Bilateral: Myringotomy (Ear Tubes) Other Surgeries: Yes: EGD, Other. No: Pacemaker Amputation: No Fractures: No - Social History Smoking Status: Former smoker Alcohol Intake: never Occupational Status: employed Housing: house Household Members: family Family Hx:: Diabetes, Hyperlipidemia, Hypertension ROS Obtained: Yes All systems reviewed & no additional complaints - Constitutional Constitutional: Denies fever(s) - Eyes Eyes: Denies change in vision - ENT Ears, Nose, Mouth, and Throat: Denies sore throat - Cardiovascular Cardiovascular: Denies chest pain - Respiratory Respiratory: No cough - Gastrointestinal Gastrointestingal: Reports: vomiting blood, black, tarry stools, nausea, vomiting. Denies: abdominal pain, diarrhea - Genitourinary Male Genitourinary: Denies hematuria - Musculoskeletal Musculoskeletal: Denies joint pain - Integumentary/Breasts Skin/Breast: Denies rash - Neurologic Neurologic: Denies seizure-like activity Physical Exam - General General appearance: alert, in no apparent distress - Head Head exam: normocephalic - Eye Eye exam: Present: PERRL, EOMI. Absent: scleral icterus - ENT ENT exam: Present: mucous membranes dry - Neck Neck exam: Present: trachea midline - Respiratory Respiratory exam: Absent: respiratory distress - Cardiovascular Cardiovascular exam: Present: regular rate - Abdominal Exam Abdominal exam: Present: soft. Absent: tenderness, guarding, rebound - Extremities Exam Extremities exam: Present: full ROM - Neurological Exam Neurological exam: Present: alert, oriented X3, CN II-XII intact - Psychiatric Psychiatric exam: Present: normal affect - Skin Skin exam: Absent: rash
--- NOTE | 2019-04-02 07:57 | Consult Report ---
*Admission Date: 04/02/19 *Reason for consult:: Hematemesis; history of peptic ulcer disease *History of present illness: This is a 23-year-old gentleman seen in consultation after evaluation in the emergency department for hematemesis and melena. He has a history of duodenal ulceration with similar symptomatology. No bright red blood per rectum. No loss of consciousness. Please see HPI from emergency department evaluation below. HPI from emergency department evaluation: - General Chief complaint: Nausea/Vomiting/Diarrhea Stated complaint: Bleeding Ulcer Time Seen by Provider: 04/02/19 06:15 Mode of Arrival: Ambulatory Source of Information: Patient, Relative, Medical Record Limitations: No Limitations Description of Symptoms (Recalled from ER Triage Doc. by RN): Pt states he has vomitted dark and bright red blood about 6 times last night, has had ulcers in the past with same symptoms - History of Present Illness HPI Narrative: pt with vomiting blood and now dark stool which started recently and has hx of bleeding ulcer and has no abd pain MD complaint: nausea, vomiting Onset (ago): hour(s) Associated Abdominal Pain: No Severity: moderate Associated symptoms: denies other symptoms Review of Systems - Constitutional Denies chills - Eyes Denies change in vision - ENT Denies difficulty swallowing - *Cardiovascular Denies chest pain - *Respiratory Denies cough - *Gastrointestinal Reports vomiting blood, Reports nausea, Denies abdominal pain - *Genitourinary Denies blood in urine - *Musculoskeletal Denies body aches - Integumentary/Breasts Denies lesions - *Neurologic Denies confusion, Denies seizure-like activity - Psychiatric Denies anxiety - Endocrine Denies cold intolerance - Hematologic/Lymphatic Denies easy bruising - Allergic/Immunologic Denies GI upset with certain foods [facility] History Medical History: Reports:: Migraine Denies:: Cancer, Diabetes Mellitus Type 1, Diabetes Mellitus Type 2, Internal Pacemaker, Lung Disease, MRSA, Seizures *Have you ever received a pneumonia vaccine?: No *Have you received a flu vaccine this season?: No Other Medical History: Denies: Blood Transfusion Reaction Laterality Cases: Bilateral: Myringotomy (Ear Tubes) Other Surgeries: Yes: EGD, Other. No: Pacemaker Amputation: No Fractures: No - *Social History Smoking Status: Former smoker Alcohol Intake: never *Occupational Status:: employed Housing: house Household Members: family *Travel in the last 8 weeks: None Family Hx:: Diabetes, Hyperlipidemia, Hypertension Meds Home Medications Medication Instructions Recorded Confirmed Type No Known Home Medications 04/02/19 04/02/19 History Allergies Allergy/AdvReac Type Severity Reaction Status Date / Time No Known Allergies Allergy Verified 01/14/19 21:54 Exam Vital signs and Labs for Last 24 Hours: Temp Pulse Resp BP Pulse Ox 98.1 F 77 12 110/53 L 100 04/02/19 07:42 04/02/19 07:45 04/02/19 07:45 04/02/19 07:45 04/02/19 07:45 Laboratory Results - last 24 hr 04/02/19 05:30: Urine Color [place], Urine Appearance Turbid, Urine pH 6.0, Ur Specific [place] >= 1.030, Urine Protein Negative, Urine Glucose (UA) Negative, Urine Ketones Negative, Urine Blood Negative, Urine Nitrate Negative, Urine Bilirubin Negative, Urine Urobilinogen 1.0, Ur Leukocyte Esterase Negative, Amorphous Sediment 2+, Urine Bacteria 3+ 04/02/19 05:45: ESR 4 04/02/19 05:45: Sodium 138, Potassium 3.8, Chloride 103, Carbon Dioxide 28, Anion Gap 10.8, BUN 13, Creatinine 1.11, Estimated Creat Clear 95, Estimated GFR 84, Est GFR ( Amer) 101, Glucose 91, Calcium 9.2, Total Bilirubin 1.0, AST 6 L, ALT 9 L, Alkaline Phosphatase 67, C-Reactive Protein < 0.2, Total Protein 7.1, Albumin 4.0, Globulin 3.1, Albumin/Globulin Ratio 1.3, Amylase 63 04/02/19 05:45: WBC 10.4, RBC 4.63, Hgb 14.5, Hct 43.1, MCV 93.1, MCH 31.4 H, MCHC 33.7, RDW 12.6, Plt Count 323, MPV 8.0, Neut % (Auto) 78.7, Lymph % (Auto) 15.2, [place] % (Auto) 3.7, Eos % (Auto) 1.9, Baso % (Auto) 0.5, Neut # (Auto) 8.2 H, Lymph # (Auto) 1.6, [place] # (Auto) 0.4, Eos # (Auto) 0.2, Baso # (Auto) 0.1 04/02/19 05:45: Lipase 127 04/02/19 06:10: Stool Occult Blood Positive A I & O for Last 24 hours: Intake & Output 03/30/19 03/31/19 04/01/19 04/02/19 11:59 11:59 11:59 11:59 Weight 140 lb - Constitutional no acute distress - *Routine Respiratory Exam Absent: respiratory distress - *Routine Cardiovascular Exam Present: RRR - *Routine Abdominal Exam Present: soft Results - Labs 04/02/19 05:45 04/02/19 05:45 Laboratory Results - last 24 hr 04/02/19 05:30: Urine Color [place], Urine Appearance Turbid, Urine pH 6.0, Ur Specific [place] >= 1.030, Urine Protein Negative, Urine Glucose (UA) Negative, Urine Ketones Negative, Urine Blood Negative, Urine Nitrate Negative, Urine Bilirubin Negative, Urine Urobilinogen 1.0, Ur Leukocyte Esterase Negative, Amorphous Sediment 2+, Urine Bacteria 3+ 04/02/19 05:45: ESR 4 04/02/19 05:45: Sodium 138, Potassium 3.8, Chloride 103, Carbon Dioxide 28, Anion Gap 10.8, BUN 13, Creatinine 1.11, Estimated Creat Clear 95, Estimated GFR 84, Est GFR ( Amer) 101, Glucose 91, Calcium 9.2, Total Bilirubin 1.0, AST 6 L, ALT 9 L, Alkaline Phosphatase 67, C-Reactive Protein < 0.2, Total Protein 7.1, Albumin 4.0, Globulin 3.1, Albumin/Globulin Ratio 1.3, Amylase 63 04/02/19 05:45: WBC 10.4, RBC 4.63, Hgb 14.5, Hct 43.1, MCV 93.1, MCH 31.4 H, MCHC 33.7, RDW 12.6, Plt Count 323, MPV 8.0, Neut % (Auto) 78.7, Lymph % (Auto) 15.2, [place] % (Auto) 3.7, Eos % (Auto) 1.9, Baso % (Auto) 0.5, Neut # (Auto) 8.2 H, Lymph # (Auto) 1.6, [place] # (Auto) 0.4, Eos # (Auto) 0.2, Baso # (Auto) 0.1 04/02/19 05:45: Lipase 127 04/02/19 06:10: Stool Occult Blood Positive A Assessment and Plan (1) History of duodenal ulcer Current visit: Yes Status: Acute Category: Medical Code(s): Z87.19 - Personal history of other diseases of the digestive system (2) Hematemesis Current visit: No Status: Acute Qualifiers: Nausea presence: with nausea Qualified Code(s): K92.0 - Hematemesis Category: Medical Code(s): K92.0 - Hematemesis EGD this AM serial H/H PPI
--- NOTE | 2019-04-02 08:37 | History & Physical Report ---
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 Patient endorses nausea but not any significant abdominal pain. Initial evaluation revealed that he was stable and his H&H is normal at this time. Patient admits to recently taking large quantities of Excedrin because of chronic headaches. Patient has a long history of migraine headaches and at his hospitalization in September 2017 was placed on amitriptyline as a prophylactic which worked well but for some reason, the patient does not know why, he stopped taking it. On initial evaluation in the emergency department once he was stabilized the on-call surgeon was contacted and I have been told plan is for EGD this morning. [facility] History I have reviewed the patient's past medical history: Yes Medical History: Reports:: Migraine, Ulcer (Duodenal ulcer September 2017 treated at [facility]) Denies:: Cancer, Diabetes Mellitus Type 1, Diabetes Mellitus Type 2, Internal Pacemaker, Lung Disease, MRSA, Seizures *Have you ever received a pneumonia vaccine?: No *Have you received a flu vaccine this season?: No Other Medical History: Denies: Blood Transfusion Reaction Laterality Cases: Bilateral: Myringotomy (Ear Tubes) Other Surgeries: Yes: EGD, Other. No: Pacemaker Amputation: No Fractures: No - *Social History Educational Level: Completed High School Smoking Status: Former smoker Alcohol Intake: never *Occupational Status:: employed Housing: house Household Members: family *Travel in the last 8 weeks: None Family Hx:: Diabetes, Hyperlipidemia, Hypertension Review of Systems - Constitutional Denies chills, Denies fatigue, Denies fever(s) - *Cardiovascular Denies chest pain at rest - *Respiratory Denies chest congestion, Denies cough, Denies shortness of breath - *Gastrointestinal Reports vomiting blood, Denies abdominal pain, Denies belching, Denies bloating, Denies change in bowel habits, Denies change in stools, Denies loose stools, Denies heartburn - *Neurologic Denies confusion, Denies seizure-like activity Meds Home Medications Medication Instructions Recorded Confirmed Type Promethazine HCl [Phenergan 25mg 25 mg PO Q6HP PRN 04/02/19 04/02/19 History tab] Allergies Allergy/AdvReac Type Severity Reaction Status Date / Time No Known Allergies Allergy Verified 01/14/19 21:54 Exam Vital signs and Labs for Last 24 Hours: Temp Pulse Resp BP Pulse Ox 98.1 F 77 12 110/53 L 100 04/02/19 07:42 04/02/19 07:45 04/02/19 07:45 04/02/19 07:45 04/02/19 07:45 Laboratory Results - last 24 hr 04/02/19 05:30: Urine Color [place], Urine Appearance Turbid, Urine pH 6.0, Ur Specific [place] >= 1.030, Urine Protein Negative, Urine Glucose (UA) Negative, Urine Ketones Negative, Urine Blood Negative, Urine Nitrate Negative, Urine Bilirubin Negative, Urine Urobilinogen 1.0, Ur Leukocyte Esterase Negative, Amorphous Sediment 2+, Urine Bacteria 3+ 04/02/19 05:45: ESR 4 04/02/19 05:45: Sodium 138, Potassium 3.8, Chloride 103, Carbon Dioxide 28, Anion Gap 10.8, BUN 13, Creatinine 1.11, Estimated Creat Clear 95, Estimated GFR 84, Est GFR ( Amer) 101, Glucose 91, Calcium 9.2, Total Bilirubin 1.0, AST 6 L, ALT 9 L, Alkaline Phosphatase 67, C-Reactive Protein < 0.2, Total Protein 7.1, Albumin 4.0, Globulin 3.1, Albumin/Globulin Ratio 1.3, Amylase 63 04/02/19 05:45: WBC 10.4, RBC 4.63, Hgb 14.5, Hct 43.1, MCV 93.1, MCH 31.4 H, MCHC 33.7, RDW 12.6, Plt Count 323, MPV 8.0, Neut % (Auto) 78.7, Lymph % (Auto) 15.2, [place] % (Auto) 3.7, Eos % (Auto) 1.9, Baso % (Auto) 0.5, Neut # (Auto) 8.2 H, Lymph # (Auto) 1.6, [place] # (Auto) 0.4, Eos # (Auto) 0.2, Baso # (Auto) 0.1 11/02/19 05:45: Lipase 127 04/02/19 06:10: Stool Occult Blood Positive A I & O for Last 24 hours: Intake & Output 03/30/19 03/31/19 04/01/19 04/02/19 11:59 11:59 11:59 11:59 Weight 128 lb 3 oz Narrative: Patient appears comfortable in bed. No pallor is noted. Oropharynx is moist and clear. Neck has no carotid bruits or lymphadenopathy. Lungs are clear. Heart has a regular rate and rhythm. Abdomen is thin, soft, nontender, nondistended without rebound or guarding. There is no abdominal distention. Patient has active range of motion in all extremities and no gross neurologic deficit. Assessment and Plan (1) UGIB (upper gastrointestinal bleed) Current visit: Yes Status: Acute Category: Medical Code(s): K92.2 - Gastrointestinal hemorrhage, unspecified Start a Protonix drip. Surgical consult for EGD this morning. H&H every 6 hours x3. (2) History of duodenal ulcer Current visit: Yes Status: Acute Category: Medical Code(s): Z87.19 - Personal history of other diseases of the digestive system
--- NOTE | 2019-04-02 08:47 | Progress Note ---
[facility] Anesthesia Checklist - Patient Identification Patient Identification: Arm Band, Verbal (Name & ) - Structural Data Admitted From: Inpatient Planned Operative Procedure/s: egd Consent for Planned Operative Procedure(s) Verified: Yes Verified Documents: History and Physical - NPO Status Verified Time NPO: 00:00 - Additional verifications Patient : No Anesthesia Reactions: No Hx Blood Transfusions: No Blood Transfusion Reaction: No Cephalosporin Allergy: No Previous Colonoscopy: No - Cardiovascular Assessment Heart Sounds: S1 & S2 Pulse Strength: Baseline Pulse Rhythm: Regular Peripheral Edema: No - Airway Assessment C-Spine Mobility Assessed: Yes TMJ Mobility Assessed: Yes Dentition: Good Dentition - Neurological Assessment Level of Consciousness: Awake, Alert, Appropriate Hx Seizures: No Numbness or tingling in extremities: No - Anesthesia Plan Anesthesia Risk discussed: Yes Anesthesia Plan: Verified ASA Class: I Anesthesia Type: MAC [facility] History I have reviewed the patient's past medical history: Yes Medical History: Reports:: Migraine, Ulcer (Duodenal ulcer September 2017 treated at [facility]) Denies:: Cancer, Diabetes Mellitus Type 1, Diabetes Mellitus Type 2, Internal Pacemaker, Lung Disease, MRSA, Seizures *Have you ever received a pneumonia vaccine?: No *Have you received a flu vaccine this season?: No Other Medical History: Denies: Blood Transfusion Reaction Anesthesia experience/problems:: none Laterality Cases: Bilateral: Myringotomy (Ear Tubes) Other Surgeries: Yes: EGD, Other. No: Pacemaker Amputation: No Fractures: No - *Social History Educational Level: Completed High School Smoking Status: Former smoker Alcohol Intake: never Substance Use Type: unknown *Occupational Status:: employed Housing: house Household Members: family *Travel in the last 8 weeks: None Family Hx:: Diabetes, Hyperlipidemia, Hypertension
--- NOTE | 2019-04-02 09:17 | Pharmacy Consult Notes ---
[facility] Pharmacy VTE Monitoring - Patient Demographics Admission date: 04/02/19 Report Date: 04/02/19 Time: 09:16 Allergies/Adverse Reactions: Patient Allergies No Known Allergies Allergy (Verified 01/14/19 21:54) Height: 1.83 m Weight: 58.145 kg Patient Problems: Current Active Problems UGIB (upper gastrointestinal bleed) (Acute) History of duodenal ulcer (Acute) - VTE Risk Labs: VTE Related Lab Results Hgb 14.5 g/dL (14.1-18.0) 04/02/19 05:45 Hct 43.1 % (42.0-52.0) 04/02/19 05:45 Plt Count 323 K/mm3 (142-424) 04/02/19 05:45 BUN 13 mg/dL (7-18) 04/02/19 05:45 Creatinine 1.11 mg/dL (0.70-1.30) 04/02/19 05:45 Estimated Creat Clear 95 mL/min (50-200) 04/02/19 05:45 - Prophylaxis Types of VTE Prophylaxis: TEDS Knee High Location of Applied Device: Bilateral Lower Extremeties (CLARISSA HOSE ORDER PLACED), Not Applicable
--- NOTE | 2019-04-02 10:17 | Procedure Note ---
- Procedure: Date: 04/02/19 Procedure Performed:: Esophagogastroduodenoscopy with epinephrine injection Indications:: Hematemesis History of duodenal ulcer Performing Provider:: Ramón Vail MD Referring Provider:: Dr. Ibrahim Sedation:: Monitored anesthesia care Procedure:: After informed consent was obtained the patient was taken to the endoscopy suite. Sedation ensued after the patient was transferred to the left lateral decubitus position. Pulse, blood pressure, and oxygen saturation were monitored throughout the procedure. The endoscope was advanced beyond the duodenal bulb. A large amount of "old blood" was noted within the gastric lumen. Copious irrigation was utilized to evacuate the majority of gastric contents. Within the duodenal bulb ulceration with a focus of clot clot/tiny vessel was noted. No active bleeding was noted. Epinephrine injection was completed surrounding the lesion. The gastroscope was carefully removed and the patient was transferred to recovery in stable condition. Please see "findings" and "specimens" below for detail. Findings:: Duodenal ulcer with no signs of active hemorrhage Large amount of "old blood" within gastric lumen Small focus of adherent clot and possible small exposed vessel at site of duodenal ulcer 10 mL of 0.1% epinephrine injected around ulceration Specimens:: None Recommendations:: Serial hemoglobin/hematocrit PPI/Carafate Repeat EGD in 6 weeks unless needed more urgently Complications:: No immediate Estimated blood obtained (mL): 0
[2019-04-02 11:39] LABS: Hematocrit 36.1 % (42.0-52.0)
[2019-04-02 17:18] LABS: Hematocrit 33.2 % (42.0-52.0)
[2019-04-03 07:05] LABS: Basophils # 0.1 K/mm3 (0-0.2); Basophils % 0.8 % (0.1-2.0); Eosinophils # 0.2 K/mm3 (0.0-0.4); Eosinophils % 3.3 % (0.1-12.0); Hematocrit 30.7 % (42.0-52.0); Lymphocytes # 1.2 K/mm3 (0.7-4.5); Lymphocytes % 22.6 % (10-50); Mean Corpuscular HGB Conc 32.5 g/dL (31.8-35.4); Mean Corpuscular Volume 97.8 fl (80-94); Mean Platelet Volume 8.3 fl (7.4-10.4); Monocytes # 0.4 K/mm3 (0.1-1.0); Monocytes % 6.9 % (1.7-9.3); Neutrophils # 3.6 K/mm3 (1.8-7.8); Neutrophils % 66.3 % (37.0-80.0); Platelet Count 216 K/mm3 (142-424); Red Blood Count 3.14 M/mm3 (4.60-6.20); Red Cell Distribution Width 12.8 % (11.5-17.5); White Blood Count 5.4 K/mm3 (4.8-10.8)
[2019-04-03 07:11] LABS: Anion Gap 10.9 mEq/L (5-15); Calcium 8.3 mg/dL (8.5-10.1)
--- NOTE | 2019-04-03 07:19 | Progress Note ---
Internal Medicine - PN: Subj *Date: 04/03/19 *Time: 07:17 Interval history: Patient underwent EGD yesterday which revealed a duodenal ulcer. At the time of EGD there was no active bleeding. Epinephrine was injected. The patient continues to deny nausea, vomiting or abdominal pain. His H&H is slowly trended down Exam Vital signs and Labs for Last 24 Hours: Temp Pulse Resp BP Pulse Ox 97.7 F 58 L 16 97/51 L 96 04/03/19 04:00 04/03/19 04:00 04/03/19 04:00 04/03/19 04:00 04/03/19 04:00 Laboratory Results - last 24 hr 04/02/19 07:30: Gastric Occult Blood Positive 04/02/19 11:15: Hgb 12.0 L D, Hct 36.1 L 04/02/19 17:05: Hgb 11.0 L, Hct 33.2 L 04/03/19 06:30: WBC 5.4 D, RBC 3.14 L D, Hgb 10.0 L, Hct 30.7 L, MCV 97.8 H, MCH 31.8 H, MCHC 32.5, RDW 12.8, Plt Count 216 D, MPV 8.3, Neut % (Auto) 66.3, Lymph % (Auto) 22.6, [place] % (Auto) 6.9, Eos % (Auto) 3.3, Baso % (Auto) 0.8, Neut # (Auto) 3.6, Lymph # (Auto) 1.2, [place] # (Auto) 0.4, Eos # (Auto) 0.2, Baso # (Auto) 0.1 I & O for Last 24 hours: Intake & Output 03/31/19 04/01/19 04/02/19 04/03/19 11:59 11:59 11:59 10:59 Intake Total 3201 / 3201 Balance 3201 / 3201 Weight 128 lb 3 oz Microbiology Reports for the Last 24 Hours: Microbiology 04/02/19 05:30 Urine,Clean Catch Urine Culture - Preliminary NO GROWTH AFTER 24 HOURS Narrative: He does not appear in any distress and is on his smart phone when I enter the room. Lungs remain clear. Heart has a regular rate and rhythm. Abdomen is thin, soft, nontender Assessment and Plan (1) UGIB (upper gastrointestinal bleed) Current visit: Yes Status: Acute Category: Medical Code(s): K92.2 - Gastrointestinal hemorrhage, unspecified (2) History of duodenal ulcer Current visit: Yes Status: Acute Category: Medical Code(s): Z87.19 - Personal history of other diseases of the digestive system - Assessment and plan all Dx Assessment and Plan for all problems:: H&H continues to trend down. Will repeat H&H this evening. Change Protonix to IV twice daily. Continue Carafate. Continue clear liquids.
--- NOTE | 2019-04-03 09:52 | Progress Note ---
Subjective Patient reports: no new complaints, feels better Exam Vital signs and Labs for Last 24 Hours: Temp Pulse Resp BP Pulse Ox 98.2 F 71 16 98/50 L 98 04/03/19 08:00 04/03/19 08:00 04/03/19 08:00 04/03/19 08:00 04/03/19 08:00 Laboratory Results - last 24 hr 04/02/19 07:30: Gastric Occult Blood Positive 04/02/19 11:15: Hgb 12.0 L D, Hct 36.1 L 04/02/19 17:05: Hgb 11.0 L, Hct 33.2 L 04/03/19 06:30: WBC 5.4 D, RBC 3.14 L D, Hgb 10.0 L, Hct 30.7 L, MCV 97.8 H, MCH 31.8 H, MCHC 32.5, RDW 12.8, Plt Count 216 D, MPV 8.3, Neut % (Auto) 66.3, Lymph % (Auto) 22.6, [place] % (Auto) 6.9, Eos % (Auto) 3.3, Baso % (Auto) 0.8, Neut # (Auto) 3.6, Lymph # (Auto) 1.2, [place] # (Auto) 0.4, Eos # (Auto) 0.2, Baso # (Auto) 0.1 04/03/19 06:30: Sodium 143, Potassium 3.9, Chloride 111 H, Carbon Dioxide 25, Anion Gap 10.9, BUN 15, Creatinine 1.03, Estimated Creat Clear 93, Estimated GFR 91, Est GFR ( Amer) 110, Glucose 83, Calcium 8.3 L I & O for Last 24 hours: Intake & Output 03/31/19 04/01/19 04/02/19 04/03/19 11:59 11:59 11:59 10:59 Intake Total 3201 / 3201 Balance 3201 / 3201 Weight 128 lb 3 oz Microbiology Reports for the Last 24 Hours: Microbiology 04/02/19 05:30 Urine,Clean Catch Urine Culture - Preliminary NO GROWTH AFTER 24 HOURS - Constitutional no acute distress - *Routine Respiratory Exam Absent: respiratory distress - *Routine Cardiovascular Exam Present: RRR Progress Note: A&P (1) UGIB (upper gastrointestinal bleed) Status: Acute Current Visit: Yes (2) History of duodenal ulcer Status: Acute Current Visit: Yes (3) Duodenal ulcer Status: Acute Assessment and plan: Continue PPI/Carafate Follow-up pending hemoglobin/hematocrit Full liquid diet ordered Current Visit: No
[2019-04-03 18:04] LABS: Hematocrit 31.7 % (42.0-52.0); Hemoglobin 10.4 g/dL (14.1-18.0)
[2019-04-04 05:24] LABS: Basophils % 0.7 % (0.1-2.0); Eosinophils # 0.4 K/mm3 (0.0-0.4); Eosinophils % 6.7 % (0.1-12.0); Lymphocytes # 1.6 K/mm3 (0.7-4.5); Lymphocytes % 27.3 % (10-50); Mean Corpuscular HGB Conc 32.3 g/dL (31.8-35.4); Mean Corpuscular Volume 97.5 fl (80-94); Mean Platelet Volume 9.1 fl (7.4-10.4); Monocytes # 0.3 K/mm3 (0.1-1.0); Monocytes % 5.3 % (1.7-9.3); Neutrophils # 3.5 K/mm3 (1.8-7.8); Neutrophils % 59.9 % (37.0-80.0); Platelet Count 240 K/mm3 (142-424); Red Blood Count 3.18 M/mm3 (4.60-6.20); Red Cell Distribution Width 12.7 % (11.5-17.5); White Blood Count 5.8 K/mm3 (4.8-10.8)
--- NOTE | 2019-04-04 07:25 | Progress Note ---
Internal Medicine - PN: Subj *Date: 04/04/19 *Time: 07:23 Interval history: Patient has no gastrointestinal complaints this morning. He states his day did not go well yesterday due to headache which she has frequently. He denies nausea and did not vomit. He tolerated some ice cream and milk products yesterday, but did not have much of an appetite due to his headache Exam Vital signs and Labs for Last 24 Hours: Temp Pulse Resp BP Pulse Ox 97.9 F 61 16 93/44 L 99 04/04/19 04:00 04/04/19 04:00 04/04/19 04:00 04/04/19 04:00 04/04/19 04:00 Laboratory Results - last 24 hr 04/03/19 18:00: Hgb 10.4 L, Hct 31.7 L 04/04/19 05:10: WBC 5.8, RBC 3.18 L, Hgb 10.0 L, Hct 31.0 L, MCV 97.5 H, MCH 31.5 H, MCHC 32.3, RDW 12.7, Plt Count 240, MPV 9.1, Neut % (Auto) 59.9, Lymph % (Auto) 27.3, [place] % (Auto) 5.3, Eos % (Auto) 6.7, Baso % (Auto) 0.7, Neut # (A uto) 3.5, Lymph # (Auto) 1.6, [place] # (Auto) 0.3, Eos # (Auto) 0.4, Baso # (Auto) 0.0 I & O for Last 24 hours: Intake & Output 04/01/19 04/02/19 04/03/19 04/04/19 12:59 12:59 11:59 11:59 Intake Total 2387 / 2387 Balance 2387 / 2387 Weight 128 lb 2 oz Microbiology Reports for the Last 24 Hours: Microbiology 04/02/19 05:30 Urine,Clean Catch Urine Culture - Final NO GROWTH AFTER 48 HOURS - Constitutional no acute distress - *Routine Cardiovascular Exam Present: RRR, Normal S1, Normal S2 - *Routine Abdominal Exam Present: soft, normoactive bowel sounds. Absent: tenderness, distended, rebound Assessment and Plan (1) Duodenal ulcer Current visit: No Status: Acute Category: Medical Code(s): K26.9 - Duodenal ulcer, unspecified as acute or chronic, without hemorrhage or perforation (2) UGIB (upper gastrointestinal bleed) Current visit: Yes Status: Acute Category: Medical Code(s): K92.2 - Gastrointestinal hemorrhage, unspecified (3) History of duodenal ulcer Current visit: Yes Status: Acute Category: Medical Code(s): Z87.19 - Personal history of other diseases of the digestive system - Assessment and plan all Dx Assessment and Plan for all problems:: Patient's H&H is stable over the last 24 hours. Will await surgical rounds. I anticipate discharge today
--- NOTE | 2019-04-04 07:29 | Discharge Summary ---
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 Patient endorses nausea but not any significant abdominal pain. Initial evaluation revealed that he was stable and his H&H is normal at this time. Patient admits to recently taking large quantities of Excedrin because of chronic headaches. Patient has a long history of migraine headaches and at his hospitalization in September 2017 was placed on amitriptyline as a prophylactic which worked well but for some reason, the patient does not know why, he stopped taking it. On initial evaluation in the emergency department once he was stabilized the on-call surgeon was contacted and I have been told plan is for EGD this morning. 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 Coelho. Patient was found to have a duodenal ulcer that was not actively bleeding. Ulcer was injected with epinephrine. Post procedure patient had H&H every 6 hours for 24 hours. Hemoglobin dropped from 14 down to 10. The following 24 hours patient's H&H stabilized with hemoglobin remaining at 10. Patient had been started on clear liquids after his procedure and then advance to full liquids. Patient tolerated liquid diet. Patient has history of migraine headaches which were well controlled on amitriptyline as a prophylactic but for some unknown reason the patient stopped taking this medication. He was taking Excedrin instead and believes this is what led to his ulcer. On April 04 patient was discharged home. He will follow-up in my office on Thursday for repeat CBC. Patient has already been told by Dr. Coelho he will need repeat endoscopy in 6 weeks Objective Vital signs: Temp Pulse Resp BP Pulse Ox 97.9 F 61 16 93/44 L 99 04/04/19 04:00 04/04/19 04:00 04/04/19 04:00 04/04/19 04:00 04/04/19 04:00 Results Labs on day of discharge: Labs from last 24 hours 04/04/19 04/03/19 05:10 18:00 WBC 5.8 RBC 3.18 L Hgb 10.0 L 10.4 L Hct 31.0 L 31.7 L MCV 97.5 H MCH 31.5 H MCHC 32.3 RDW 12.7 Plt Count 240 MPV 9.1 Neut % (Auto) 59.9 Lymph % (Auto) 27.3 [place] % (Auto) 5.3 Eos % (Auto) 6.7 Baso % (Auto) 0.7 Neut # (Auto) 3.5 Lymph # (Auto) 1.6 [place] # (Auto) 0.3 Eos # (Auto) 0.4 Baso # (Auto) 0.0 DS: Diagnosis - Discharge Diagnosis (1) Duodenal ulcer Status: Acute (2) UGIB (upper gastrointestinal bleed) Status: Acute (3) History of duodenal ulcer Status: Acute Discharge Plan - Patient Discharge Instructions ACTIVITY: Continue current activity DIET: continue same diet Patient Instructions: Duodenal Ulcer, DI for Surgical Site Infection, Gastrointestinal Bleeding - Follow up Plan Follow up with: Ramón Vail MD [Staff Physician] - 2 weeks Yogesh Ibrahim MD [Primary Care Provider] - 04/08/19 Disposition: Home, Self-Custodial Medications: Home Medications Medication Instructions Recorded Confirmed Type Promethazine HCl [Phenergan 25mg 25 mg PO Q6HP PRN 04/02/19 04/02/19 History tab] Amitriptyline HCl [Elavil 25mg 25 mg PO HS #30 tab 04/04/19 Rx tablet] Pantoprazole Sodium [Protonix 40mg 40 mg PO BID 30 Days #60 tab 04/04/19 Rx tablet] Sucralfate [Sucralfate 1gm 1 gm PO ACHS #120 tab 04/04/19 Rx Tab] Prescriptions/Medication Reconciliation: New Sucralfate [Sucralfate 1gm Tab] 1 gm PO ACHS #120 tab Amitriptyline HCl [Elavil 25mg tablet] 25 mg PO HS #30 tab Pantoprazole Sodium [Protonix 40mg tablet] 40 mg PO BID 30 Days #60 tab Continued Promethazine HCl [Phenergan 25mg tab] 25 mg PO Q6HP PRN PRN Reason: Nausea And Vomiting - Problem Reconciliation Problems Reviewed?: Yes
--- NOTE | 2019-04-04 08:07 | Progress Note ---
Subjective Patient reports: no new complaints Exam Vital signs and Labs for Last 24 Hours: Temp Pulse Resp BP Pulse Ox 97.9 F 61 16 93/44 L 99 04/04/19 04:00 04/04/19 04:00 04/04/19 04:00 04/04/19 04:00 04/04/19 04:00 Laboratory Results - last 24 hr 04/03/19 18:00: Hgb 10.4 L, Hct 31.7 L 04/04/19 05:10: WBC 5.8, RBC 3.18 L, Hgb 10.0 L, Hct 31.0 L, MCV 97.5 H, MCH 31.5 H, MCHC 32.3, RDW 12.7, Plt Count 240, MPV 9.1, Neut % (Auto) 59.9, Lymph % (Auto) 27.3, [place] % (Auto) 5.3, Eos % (Auto) 6.7, Baso % (Auto) 0.7, Neut # (Auto) 3.5, Lymph # (Auto) 1.6, [place] # (Auto) 0.3, Eos # (Auto) 0.4, Baso # (Auto) 0.0 I & O for Last 24 hours: Intake & Output 04/01/19 04/02/19 04/03/19 04/04/19 12:59 12:59 11:59 11:59 Intake Total 2387 / 2387 Balance 2387 / 2387 Weight 128 lb 2 oz Microbiology Reports for the Last 24 Hours: Microbiology 04/02/19 05:30 Urine,Clean Catch Urine Culture - Final NO GROWTH AFTER 48 HOURS - Constitutional no acute distress - *Routine Respiratory Exam Absent: respiratory distress - *Routine Cardiovascular Exam Present: RRR Progress Note: A&P (1) Duodenal ulcer Status: Acute Current Visit: No (2) UGIB (upper gastrointestinal bleed) Status: Acute Assessment and plan: No sign of ongoing hemorrhage. Hemoglobin this morning is stable and patient wishes to go home. He will be discharged home with close outpatient follow-up. He will continue proton pump inhibition and Carafate therapy for now. Outpatient repeat EGD will be completed in 4-8 weeks (unless needed more urgently). Current Visit: Yes (3) History of duodenal ulcer Status: Acute Current Visit: Yes
== END 2019-04-04 09:09 | disposition home or self-care (01) ==
LOC: ER 05:28 → 2ND 05:28
PROVIDERS: ADMIT Internal Medicine Adolescent Medicine; ATTEND Family Medicine
CPT/HCPCS: 36415; 80048; 80053; 81001; 82150; 82272; 83690; 85014; 85018; 85025; 85651; 86140; 87086; 96365; 96366; 96375; 99283; G0328; G0378; J2405; J2704

== ENCOUNTER 2020-05-10 15:30 | Outpatient (RCR) | payer OTHER, SELFPAY ==
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
== END 2020-05-10 15:35 | disposition home or self-care (01) ==
LOC: PT 15:30
PROVIDERS: Visit Provider Family Medicine
DX: M25.511 Pain in right shoulder (principal)
CPT/HCPCS: 97010; 97014; 97110; 97163; G0283

== ENCOUNTER → 2020-07-20 13:09 | Outpatient (CLI) | payer OTHER, SELFPAY ==
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
== END ==
PROVIDERS: PCP Family Medicine; Visit Provider Neurological Surgery
DX: M54.2 Cervicalgia (principal); M54.6 Pain in thoracic spine
CPT/HCPCS: 72141; 72146; 76376

== ENCOUNTER → 2020-10-19 11:15 | Outpatient (CLI) | payer BC, SELFPAY ==
--- NOTE | 2020-10-19 11:23 | XR_ITS ---
PROCEDURE: XR RIBS RT MIN 3V W CXR1V CLINICAL INDICATION: SWELLING MASS, OR LUMP IN CHEST COMPARISON: CR CXR CHEST(2 VIEWS-NOT PORTABLE) from 07/02/[address] CHEST WITHOUT CONTRAST from 07/02/2010 CR CXR2 CHEST-AP VIEW ONLY from 06/09/2014 CR CXR CHEST(2 VIEWS-NOT PORTABLE) from 07/01/2016 FINDINGS: Frontal view of the chest shows no acute finding. There is a longitudinal density along the left lateral hemithorax which may be due to artifact as the patient's arms are down by either side. Lung markings are present peripheral to this region. No rib fracture or dislocation. No bony destructive process. IMPRESSION: Negative right ribs with chest Dictated by: Jone Bruce MD 10/19/2020 12:39 Jone Bruce MD in [place] 10/19/2020 12:39
== END ==
PROVIDERS: PCP Nurse Practitioner Family; Visit Provider Nurse Practitioner Family
DX: R22.2 Localized swelling, mass and lump, trunk (principal)
CPT/HCPCS: 71101

== ENCOUNTER → 2020-10-24 09:56 | Outpatient (CLI) | payer BC, SELFPAY ==
--- NOTE | 2020-10-24 10:00 | US_ITS ---
PROCEDURE: US CHEST CLINICAL INDICATION: SWELLING,MASS,OR LUMP IN CHEST COMPARISON: No exams were available for comparison FINDINGS: There is a hypoechoic oval subcutaneous nodule in the right chest corresponding to the palpable abnormality. This measures 13 by 11 mm and is 4 mm in thickness. There are low level internal echoes within this nodule. This is nonspecific and may be related to a hematoma or complex seroma or an abscess. An atypical appearance of a sebaceous cyst would also be a consideration. The nodule is well-circumscribed and in the subcutaneous tissues. There is enhanced through transmission of sound. This does appear to be superficial to the muscle. IMPRESSION: Palpable abnormality corresponds to a complex hypoechoic well-circumscribed nodule possibly due to a hematoma or complex seroma. Other etiologies not excluded. Dictated by: Jone Bruce MD 10/24/2020 13:50 Jone Bruce MD in [place] 10/24/2020 13:50
== END ==
PROVIDERS: PCP Nurse Practitioner Family; Visit Provider Nurse Practitioner Family
DX: R22.2 Localized swelling, mass and lump, trunk (principal)
CPT/HCPCS: 76604

== ENCOUNTER 2021-04-23 19:47 | Emergency (ER) | payer BC, SELFPAY ==
[2021-04-23 20:09] VITALS: BP 134/85; PULSE 107; RESP 21; TEMP 37.5; O2SAT 98; BMI 18.1
[2021-04-23 20:12] LABS: Adenovirus,PCR Not Detected (NotDetected); Bordetella Pertussis Not Detected (NotDetected); Chlamydophila Pneumoniae, PCR Not Detected (NotDetected); Coronavirus 19, PCR Not Detected (NotDetected); Coronavirus 229E Not Detected (NotDetected); Coronavirus NL63 Not Detected (NotDetected); Coronavirus OC43 Not Detected (NotDetected); Coronovirus HKU1,PCR Not Detected (NotDetected); Human Metapneumovirus Not Detected (NotDetected); Influenza A, PCR Not Detected (NotDetected); Influenza AH1, 2009 Not Detected (NotDetected); Influenza AH1, PCR Not Detected (NotDetected); Influenza AH3,PCR Not Detected (NotDetected); Influenza B, PCR Not Detected (NotDetected); Mycoplasma Pneumoniae, PCR Not Detected (NotDetected); Parainfluenza 1, PCR Not Detected (NotDetected); Parainfluenza 3, PCR Not Detected (NotDetected); Parainfluenza 4, PCR Not Detected (NotDetected); Respiratory Syncytial Virus Not Detected (NotDetected); Rhinovirus/Enterovirus Not Detected (NotDetected)
--- NOTE | 2021-04-23 20:17 | HMH.EDUTC ---
[facility] [place] Clinical Impression: Cough Disposition: Home, Self-Care Condition on Discharge: Good Instructions: Cough, Benzonatate, Cefdinir, DI for Fever (Symptom) -- Adult Additional Instructions: *Monitor Temp, Over the counter Motrin or Tylenol as directed/as needed Tylenol every 4 hours and Motrin every 6 hours (as long as your family doctor has told you that you can take it) for fever or pain. and straight to ER if unable to lower temp less than 101.0 after medication given *Warm salt water gargles may help to soothe the throat *Throat Lozenges *Warm fluids like tea with honey may help to soothe the throat *Sleep elevated *Humidifier/Vaporizer Continue taking prescribed antibiotics *Tessalon Perles will not cause drowsiness but use at bedtime to help stop cough so that you may get some rest. Follow up IMMEDIATELY for new or worsening symptoms or no Noticeable improvement over the next 48-72 hours. 911 for difficulty breathing or swallowing You were tested for today for COVID19 your test result should be back in the next 24-48 hours, you may Check your results on the [facility] My health portal If you have trouble logging on there is number on there for you to call for help You was given a handout with instructions for Self Quarantine and Self isolation for while you wait on test results and what to do if they are positive If you are positive the Health Dept will be contacting you also Make sure to take your Vitamins Vit. C Vit D and Zinc if you can take them Prescriptions: Benzonatate [Benzonatate 100mg cap] 100 mg PO Q8HP PRN #15 cap PRN Reason: Cough Transmission Status: Pending to [facility] #[id number] Referrals: Yogesh Ibrahim MD [Primary Care Provider] - As needed Forms: Work/School Release Medical Decision Making - Alber Inquiry Pt receiving controlled substance: No Alber was queried for this patient: No Vital Signs: 04/23/21 20:09 Temperature 99.5 F Temperature Source Oral Pulse Rate [Left] 107 H Respiratory Rate 21 Blood Pressure [Right Arm] 134/85 Blood Pressure Mean [Right Arm] 101 02 Sat by Pulse Oximetry 98 Orders (Tests/Meds): ORDERS Category Date Time Status Full Resp Panel w/COVID ([facility]) Routine Lab 11/23/21 19:58 Received [facility] [place] HPI - General Stated complaint: COUGH Time Seen by Provider: 04/23/21 20:17 Mode of Arrival: Ambulatory Source of Information: Patient Limitations: No Limitations Description of Symptoms (Recalled from Triage Doc. by RN): pt c/o fever, cough, chills, congestion and sore throat. x3 days. HEENT Symptoms (Recalled from RN notes): Yes (congestion and sore throat) Resp Symptoms (Recalled from RN notes): Yes (cough) Skin Symptoms (Recalled from RN notes): No MS Symptoms (Recalled from RN notes): No Functional Status (Recalled from RN notes): wnl - History of Present Illness Provider Complaint: Patient states that he has been having fever, cough, chills, body aches and sore throat for about 3 days States that he seen his PCP yesterday and they tested him for strep and COVID states that he was negative and they put him on some antiboitics State that he has been having cough and wanted to get tested for the flu and see if there is something he can take for the cough to help so he came back in to get checked - Related Data Home Medications Medication Instructions Recorded Confirmed Amitriptyline HCl [Elavil 25mg 25 mg PO HS 05/12/19 11/05/20 tablet] Previous Rx's Medication Instructions Recorded Benzonatate [Benzonatate 100mg 100 mg PO Q8HP PRN #15 cap 04/23/21 cap] Allergies Allergy/AdvReac Type Severity Reaction Status Date / Time No Known Allergies Allergy Verified 11/05/20 13:46 - Worker's Comp Is this a Worker's Comp case?: No [facility] History - Hepatitis A Screen Drug use history?: No High risk sexual behaviors?: No History of sexually transmitted infection?: No Currently employed?: No [employer]
[2021-04-23 20:24] VITALS: BP 134/85; PULSE 107; RESP 21; TEMP 37.5
[2021-04-23 20:25] LABS: UTC Strep Screen (Rapid) Negative (Negative)
[2021-04-23 21:41] LABS: Parainfluenza 2, PCR Detected (NotDetected)
== END 2021-04-23 20:36 | disposition home or self-care (01) ==
PROVIDERS: Emergency Provider Nurse Practitioner; PCP Family Medicine
DX: B34.8 Other viral infections of unspecified site (principal); R50.9 Fever, unspecified; G43.709 Chronic migraine without aura, not intractable, without status migrainosus; Z87.891 Personal history of nicotine dependence
CPT/HCPCS: 87581; 87632; 87798; 87880; 99203; C9803; G0463; U0003; U0005

== ENCOUNTER 2021-07-18 16:20 | Emergency (ER) | payer SELFPAY ==
[2021-07-18 16:21] VITALS: BP 119/77; PULSE 78; RESP 18; TEMP 36.8; O2SAT 98; BMI 17.8
[2021-07-18 16:55] LABS: Basophils # 0.1 K/mm3 (0-0.2); Basophils % 1.3 % (0.1-2.0); Eosinophils # 0.6 K/mm3 (0.0-0.4); Eosinophils % 7.3 % (0.1-12.0); Hematocrit 45.5 % (42.0-52.0); Hemoglobin 15.2 g/dL (14.1-18.0); Lymphocytes # 2.4 K/mm3 (0.7-4.5); Lymphocytes % 29.7 % (10-50); Mean Corpuscular HGB Conc 33.3 g/dL (31.8-35.4); Mean Corpuscular Hemoglobin 30.9 pg (27.0-31.2); Mean Corpuscular Volume 92.6 fl (80-94); Mean Platelet Volume 7.4 fl (7.4-10.4); Monocytes # 0.4 K/mm3 (0.1-1.0); Monocytes % 4.6 % (1.7-9.3); Neutrophils # 4.5 K/mm3 (1.8-7.8); Neutrophils % 57.2 % (37.0-80.0); Platelet Count 358 K/mm3 (142-424); Red Blood Count 4.91 M/mm3 (4.60-6.20); Red Cell Distribution Width 12.7 % (11.5-17.5); White Blood Count 7.9 K/mm3 (4.8-10.8)
[2021-07-18 16:57] LABS: Chloride 100 mmol/L (98-107); Potassium 3.9 mmoL/L (3.5-5.1); Sodium 134 mmol/L (136-145)
[2021-07-18 16:59] LABS: Blood Urea Nitrogen 11 mg/dl (9-20); Creatinine Clearance Estimated 99 mL/min (50-200); Estimated Glomerular Filt Rate 92 ml/min (>60); GFR (African American) 111 ML/MIN (>60)
[2021-07-18 17:00] LABS: Alanine Aminotransferase 22 U/L (12-78); Albumin Level 4.7 g/dl (3.5-5.0); Albumin/Globulin Ratio 1.7 (1.1-1.8); Alkaline Phosphatase 60 U/L (38-126); Anion Gap 8.9 mEq/L (5-15); Aspartate Amino Transferase 32 U/L (17-59); Bilirubin,Total 0.5 mg/dl (0.2-1.3); Calcium 8.7 mg/dl (8.4-10.2); Carbon Dioxide 29 mmol/L (22.0-30.0); Globulin 2.8 g/dL (1.3-3.2); Glucose 101 mg/dl (74-100); Total Protein,Serum 7.5 g/dl (6.3-8.2)
--- NOTE | 2021-07-18 18:02 | HMH.EDGENADL ---
ED Disposition Clinical Impression: Rectal bleeding Disposition: Home, Self-Care Condition on Discharge: Good Instructions: DI for Gastrointestinal Bleeding Additional Instructions: Pepcid as prescribed. Call Dr. Vail tomorrow to make appointment for follow-up. Return to the emergency department if passing large amounts of blood per rectum or if vomiting blood. Return if any severe abdominal pain or any fever. Prescriptions: Famotidine [Pepcid] 40 mg PO HS #20 tab Transmission Status: Received by [facility][id number] Referrals: Yogesh Ibrahim MD [Primary Care Provider] - - Critical Care Critical Care Time: No Attestation: On 07/18/21, the high probability of a clinically significant, sudden or life threatening deterioration of the following system(s) required my full and direct attention, intervention and personal management. The time I documented below is in addition to time spent performing reported procedures but includes the following listed in this critical care notation. Medical Decision Making - Alber Inquiry Pt receiving controlled substance: No Vital Signs: 07/18/21 16:21 Temperature 98.3 F Temperature Source Oral Pulse Rate [Right Radial] 78 Respiratory Rate 18 Blood Pressure [Right Arm] 119/77 Blood Pressure Mean [Right Arm] 91 Blood Pressure Source [Right Arm] Automatic Cuff Blood Pressure Position [Right Arm] Sitting 02 Sat by Pulse Oximetry 98 Oxygen Delivery Method Room Air - Lab Data Lab Results 07/18/21 16:40: WBC 7.9, RBC 4.91, Hgb 15.2, Hct 45.5, MCV 92.6, MCH 30.9, MCHC 33.3, RDW 12.7, Plt Count 358, MPV 7.4, Neut % (Auto) 57.2, Lymph % (Auto) 29.7, [place] % (Auto) 4.6, Eos % (Auto) 7.3, Baso % (Auto) 1.3, Neut # (Auto) 4.5, Lymph # (Auto) 2.4, [place] # (Auto) 0.4, Eos # (Auto) 0.6 H, Baso # (Auto) 0.1 07/18/21 16:40: Sodium 134 L, Potassium 3.9, Chloride 100, Carbon Dioxide 29, Anion Gap 8.9, BUN 11, Creatinine 1.00, Estimated Creat Clear 99, Estimated GFR 92, Est GFR ( Amer) 111, Glucose 101 H, Calcium 8.7, Total Bilirubin 0.5, AST 32, ALT 22, Alkaline Phosphatase 60, Total Protein 7.5, Albumin 4.7, Globulin 2.8, Albumin/Globulin Ratio 1.7 Result diagrams: 07/18/21 16:40 07/18/21 16:40 Orders (Tests/Meds): ED MEDICATIONS Generic Name Dose Route Start Last Admin Trade Name Freq PRN Reason Stop Dose Admin Sodium Chloride 10 ml 07/18/21 16:36 Sodium Chloride 0.9% 10ml Flush Syringe IV 08/17/21 16:35 NEEDED PRN Maintain IV Site Sodium Chloride 8 ml 07/18/21 18:20 Sodium Chloride 0.9% 10ml Vial IV 08/17/21 18:19 NEEDED PRN dilute pepcid Discontinued Medications Generic Name Dose Route Start Last Admin Trade Name Freq PRN Reason Stop Dose Admin Famotidine 20 mg 07/18/21 18:20 Famotidine 20mg/2ml Vial IV 07/18/21 18:21 ONCE ONE ORDERS Category Date Time Status Occult Blood,Stool Stat Lab 07/18/21 16:36 Ordered Occult Blood,Stool Stat Lab 07/18/21 18:14 Ordered Medical Decision Narrative: The patient is hemodynamically stable with one episode of small amount of hematochezia. Given his prior history he will be started on Pepcid. 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 Advised to follow-up with Dr. Vail, call tomorrow make appointment. Return for any large amounts of rectal bleeding. General Adult HPI - General Chief complaint: GI Bleed Stated complaint: history of bleeding ulcers, passing blood Time Seen by Provider: 07/18/21 18:03 Mode of Arrival: Ambulatory Limitations: No Limitations Description of Symptoms (Recalled from ER Triage Doc. by RN): Pt c/o bright red bloody stool that began today. Reports hx of bleeding ulcers. Denies abd pain. Does report nausea. - History of Present Illness HPI narrative: Complains of bright red rectal bleeding, 1 episode today. Small amount. Slight nausea and a slight uncomfortable feeling in his abdomen,
[2021-07-18 18:59] VITALS: BP 120/77; PULSE 72; RESP 14; TEMP 36.7; O2SAT 99
[2021-07-18 19:21] LABS: Occult Blood,Stool Positive (Negative)
== END 2021-07-18 19:03 | disposition home or self-care (01) ==
PROVIDERS: Emergency Provider Emergency Medicine; PCP Family Medicine
DX: K62.5 Hemorrhage of anus and rectum (principal); Z87.19 Personal history of other diseases of the digestive system; G43.709 Chronic migraine without aura, not intractable, without status migrainosus; Z87.891 Personal history of nicotine dependence
CPT/HCPCS: 80053; 82272; 85025; 99282; G0328

== ENCOUNTER 2022-04-07 20:02 | Emergency (ER) | payer SELFPAY ==
[2022-04-07 20:03] VITALS: BP 129/79; PULSE 98; RESP 18; TEMP 36.8; O2SAT 100; BMI 17.6
[2022-04-07 21:16] LABS: Basophils # 0.1 K/mm3 (0-0.2); Basophils % 0.6 % (0.1-2.0); Eosinophils # 0.3 K/mm3 (0.0-0.4); Eosinophils % 2.3 % (0.1-12.0); Hematocrit 41.9 % (42.0-52.0); Hemoglobin 14.1 g/dL (14.1-18.0); Lymphocytes # 1.7 K/mm3 (0.7-4.5); Lymphocytes % 12.5 % (10-50); Mean Corpuscular HGB Conc 33.7 g/dL (31.8-35.4); Mean Corpuscular Hemoglobin 31.6 pg (27.0-31.2); Mean Corpuscular Volume 93.8 fl (80-94); Monocytes # 0.6 K/mm3 (0.1-1.0); Monocytes % 4.3 % (1.7-9.3); Neutrophils # 10.7 K/mm3 (1.8-7.8); Neutrophils % 80.2 % (37.0-80.0); Platelet Count 345 K/mm3 (142-424); Red Blood Count 4.46 M/mm3 (4.60-6.20); White Blood Count 13.4 K/mm3 (4.8-10.8)
[2022-04-07 21:26] LABS: Chloride 100 mmol/L (98-107); Sodium 139 mmol/L (136-145)
[2022-04-07 21:28] LABS: Alanine Aminotransferase 17 U/L (12-78); Aspartate Amino Transferase 22 U/L (17-59); Blood Urea Nitrogen 7 mg/dl (9-20); Creatinine Clearance Estimated 95 mL/min (50-200); Estimated Glomerular Filt Rate 92 ml/min (>60); GFR (African American) 111 ML/MIN (>60)
--- NOTE | 2022-04-07 21:28 | HMH.EDHA ---
Discharge Plan Disposition Patient Disposition: Home, Self-Care Chief Complaint: Headache Prescriptions Prescriptions: No Action benzonatate 100 MG capsule 100 mg PO Q8HP PRN (Reason: Cough) Qty: 15 0RF amitriptyline 25 MG tablet 25 mg PO HS famotidine 40 MG tablet 40 mg PO HS Qty: 20 0RF Referrals Follow up/Referrals: Yogesh Ibrahim MD [Primary Care Provider] - See instructions Clinical Impressions Clinical Impression: Headache Instructions Patient Instructions: DI for Headache Discharge ED Provider: Paolo Ledesma Headache HPI General Chief Complaint: Headache Stated Complaint: MIAGRANE Time Seen by Provider: 04/07/22 21:28 Mode of Arrival: Ambulatory Source of Information: Patient, Relative and Medical Record Limitations: No Limitations Description of Symptoms (Recalled from ER Triage Doc. by RN): pt c/o mirgiane since lunch time also c/o body aches and fever History of Present Illness HPI Narrative: started with craig this am but proceeded to have achey and feeling cold - no rash Complaint: headache Onset (ago): hour(s) Location: diffuse Severity: moderate Quality: different than previous headaches Associated symptoms: nausea Treatments prior to arrival: acetaminophen Related Data Home Medications Medication Instructions Recorded Confirmed amitriptyline 25 mg tablet 25 mg PO HS mood 05/12/19 11/05/20 Previous Rx's Medication Instructions Recorded benzonatate 100 mg capsule 100 mg PO Q8HP PRN Cough #15 caps 04/23/21 famotidine 40 mg tablet 40 mg PO HS #20 tabs 07/18/21 Allergies Allergy/AdvReac Type Severity Reaction Status Date / Time No Known Allergies Allergy Verified 11/05/20 13:46 [facility] History Hepatitis A Screen Attestation statement:: This patient has been screened for Hepatitis A risk factors. I have reviewed the patient's past medical history: Yes Medical History: Reports: Migraine and Ulcer; Denies: Cancer, Diabetes Mellitus Type 1, Diabetes Mellitus Type 2, Internal Pacemaker, Lung Disease, MRSA or Seizures Other Medical History: Denies Blood Transfusion Reaction Comment: Migraine headaches Laterality Cases: Bilateral: Myringotomy (Ear Tubes) Other Surgeries: No Pacemaker Amputation: No Fractures: No Social History Smoking Status: Current every day smoker Alcohol Intake: never Substance Use Type: denies use and unknown Occupational Status: employed Housing: house Household Members: family Family Hx:: Diabetes, Hyperlipidemia and Hypertension PFSH PFSH Social History Smoking Status: Current every day smoker alcohol intake: never substance use type: denies use and unknown current occupational status: employed Travel in the last 8 weeks: None household members: family housing: house 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 current occupational exposures/hazards: Yes (TRASH) caffeine: Yes ROS Obtained: Yes All systems reviewed & no additional complaints except as documented Physical Exam General General appearance: alert Head Head exam: normocephalic Eye Eye exam: Present PERRL and EOMI; Absent nystagmus ENT ENT exam: Present mucous membranes moist and TM's normal bilaterally Neck Neck exam: Present trachea midline; Absent meningismus Respiratory Respiratory exam: Present normal lung sounds bilaterally Cardiovascular Cardiovascular exam: Present regular rate Abdominal Exam Abdominal exam: Present soft Extremities Exam Extremities exam: Present full ROM Neurological Exam Neurological exam: Present alert, oriented X3 and CN II-XII intact; Absent motor sensory deficit Skin Skin exam: Absent rash Lymphatic Lymphatic Findings: no adenopathy Medical Decision Making Medical Records Medical records reviewed: Yes I reviewed the patient's medical records. Alber Inquiry Pt receiving controlled substance: No Vital Signs: 04/07/22 20:03 04/07/22 21:30 04/07/22 22:00 Temperature 98.2 F Temperature
[2022-04-07 21:29] LABS: Albumin Level 4.4 g/dl (3.5-5.0); Albumin/Globulin Ratio 1.6 (1.1-1.8); Alkaline Phosphatase 82 U/L (38-126); Bilirubin,Total 0.4 mg/dl (0.2-1.3); Calcium 9.7 mg/dl (8.4-10.2); Carbon Dioxide 30 mmol/L (22.0-30.0); Globulin 2.7 g/dL (1.3-3.2); Glucose 105 mg/dl (74-100); Total Protein,Serum 7.1 g/dl (6.3-8.2)
[2022-04-07 21:30] VITALS: BP 109/54; PULSE 80; O2SAT 99
[2022-04-07 21:34] LABS: Coronavirus 19, PCR Not Detected (NotDetected); Influenza A, PCR Not Detected (NotDetected); Influenza B, PCR Not Detected (NotDetected)
[2022-04-07 22:00] VITALS: BP 95/55; PULSE 73; O2SAT 99
[2022-04-07 22:30] VITALS: BP 96/55; PULSE 80; O2SAT 97
[2022-04-07 23:00] VITALS: BP 95/45; PULSE 77; O2SAT 96
[2022-04-07 23:52] VITALS: BP 97/49; PULSE 77; RESP 18; TEMP 36.8; O2SAT 96
== END 2022-04-07 23:55 | disposition home or self-care (01) ==
PROVIDERS: Emergency Provider Emergency Medicine; PCP Family Medicine
DX: R51.9 Headache, unspecified (principal); Z72.0 Tobacco use
CPT/HCPCS: 80053; 85025; 96365; 96366; 96375; 99284; C9803; U0003; U0005